=== PATIENT | female | born 1975 | race Caucasian/White ===

== ENCOUNTER → 2016-12-24 | Outpatient (CLI) | payer MEDICARE, OTHER ==
--- NOTE | 2016-12-25 06:44 | MM ---
Reason for exam: clinical finding. Last mammogram was performed 3 years ago. History: Family history of breast cancer in maternal grandmother at age 30. Indicated problem(s): lump or thickening in the right breast. Physical Findings: Nurse Summary: 1 x 1.5cm nodule in the right breast at 2 o'clock (nurse ts). MG 3D Diag Mammo W/Cad GUERO Bilateral CC and MLO view(s) were taken. XCCL, CV, and ML view(s) were taken of the right breast. Prior study comparison: December 18, 2013, bilateral MG diagnostic mammo w CAD GUERO. There are scattered fibroglandular densities. Nodular density at site of clinical correlation. These results were verbally communicated with the patient and result sheet given to the patient on 12/24/16. ASSESSMENT: Incomplete: need additional imaging evaluation, BI-RAD 0 RECOMMENDATION: Ultrasound of the right breast. Manage patient on a clinical basis.
--- NOTE | 2016-12-25 06:46 | USB ---
Reason for exam: additional evaluation requested from abnormal screening. History: Family history of breast cancer in maternal grandmother at age 30. US Breast RT Right breast ultrasound includes all four quadrants, the retroareolar region and axilla. Finding demonstrates a 1.4 x 1.2 x 0.5cm subcutaneous hypoechoic lesion at 3 o'clock, probable infected sebaceous cyst. These results were verbally communicated with the patient and result sheet given to the patient on 12/24/16. ASSESSMENT: Probably benign, BI-RAD 3 RECOMMENDATION: Ultrasound of the right breast in 3 months. Manage patient on a clinical basis.
== END | disposition home or self-care (01) ==
LOC: RADMAMWWP 13:33
PROVIDERS: ATTEND Family Medicine
DX: N63.10 Unspecified lump in the right breast, unspecified quadrant (principal); R92.8 Other abnormal and inconclusive findings on diagnostic imaging of breast
CPT/HCPCS: 76641; G0204; G0279

== ENCOUNTER 2020-02-07 09:41 | Emergency (ER) | payer MEDICARE, OTHER ==
--- NOTE | 2020-02-07 10:43 | ED ---
General Adult HPI - General Chief complaint: Altered Mental Status Stated complaint: mental health Time Seen by Provider: 02/07/20 10:07 Source: patient Mode of arrival: ambulatory Limitations: no limitations - History of Present Illness Initial comments: 44-year-old female presenting to the emergency department for altered mental status. Patient states she was started on Bactrim 4 days ago for a UTI that was diagnosed at an urgent care. Patient states she has been losing bladder control at least twice per week for over the last month. She does have hysterectomy. She denies any saddle anesthesia or bowel incontinence. She denies any dysuria or increased frequency but does report increased urgency. States today she wanted to call the [employer] but instead called her primary care physician and told him that she was getting more forgetful than usual, had blurry vision and difficulty walking. Although, she states the symptoms have been ongoing for the past several months. Patient states that she was advised by the PCPs office to come to the emergency department for evaluation. Patient denies one-sided weakness or paresthesias. Denies any visual changes at this time. - Related Data Home Medications Medication Instructions Recorded Confirmed Venlafaxine HCl [Effexor XR] 75 mg PO DAILY 12/26/13 02/07/20 Amoxic-Pot Clav 875-125Mg 1 tab PO BID 02/07/20 02/07/20 [Augmentin 875-125] Benztropine Mesylate [Cogentin] 1 mg PO HS 02/07/20 02/07/20 Benztropine Mesylate [Cogentin] 2 mg PO DAILY 02/07/20 02/07/20 Lurasidone HCl [Latuda] 120 mg PO HS 02/07/20 02/07/20 Omeprazole 20 mg PO BID 02/07/20 02/07/20 QUEtiapine FUMARATE [SEROquel] 300 mg PO HS 02/07/20 02/07/20 Sulfamethox-Tmp 800-160Mg [Bactrim 1 tab PO BID 02/07/20 02/07/20 DS 800-160 mg] Trospium Chloride 20 mg PO BID 02/07/20 02/07/20 Venlafaxine HCl ER [Effexor Xr] 150 mg PO DAILY 02/07/20 02/07/20 clonazePAM [KlonoPIN] 2 mg PO Q8H 02/07/20 02/07/20 lamoTRIgine [LaMICtal] 100 mg PO DAILY 02/07/20 02/07/20 lamoTRIgine [LaMICtal] 200 mg PO BID 02/07/20 02/07/20 metFORMIN HCL ER [Glucophage Xr] 500 mg PO AC-SUPPER 02/07/20 02/07/20 Allergies Allergy/AdvReac Type Severity Reaction Status Date / Time amoxicillin [Amoxicillin] AdvReac Abdominal Verified 02/07/20 11:40 Pain Review of Systems ROS Statement: Those systems with pertinent positive or pertinent negative responses have been documented in the HPI. ROS Other: All systems not noted in ROS Statement are negative. Past Medical History Past Medical History: GERD/Reflux Additional Past Medical History / Comment(s): panic disorder, depression, anxiety, bipolar History of Any Multi-Drug Resistant Organisms: Other MDRO Past Surgical History: Cholecystectomy, Hernia Repair, Hysterectomy Past Anesthesia/Blood Transfusion Reactions: No Reported Reaction Past Psychological History: Anxiety, Bipolar, Depression, Panic Disorder Smoking Status: Current every day smoker Past Alcohol Use History: None Reported Past Drug Use History: None Reported General Exam Limitations: no limitations General appearance: alert, in no apparent distress, obese Head exam: Present: atraumatic, normocephalic, normal inspection Eye exam: Present: normal appearance, PERRL, EOMI. Absent: scleral icterus, conjunctival injection, nystagmus Pupils: Present: normal accommodation ENT exam: Present: normal exam, normal oropharynx, mucous membranes dry, TM's normal bilaterally, normal external ear exam Neck exam: Present: normal inspection, full ROM. Absent: tenderness, lymphadenopathy Respiratory exam: Present: normal lung sounds bilaterally. Absent: respiratory distress, wheezes, rales, rhonchi, stridor, chest wall tenderness, accessory muscle use Cardiovascular Exam: Present: regular rate, normal rhythm, normal heart sounds. Absent: systolic murmur, diastolic murmur, rubs GI/Abdominal exam: Present: soft. Absent: distended, tenderness, rebound Extremities exam: Present: normal inspection, full ROM, normal capillary refill, other (+2 ulnar and radial pulses bilateral.). Absent: tenderness, pedal edema, joint swelling, calf tenderness Back exam: Present: normal inspection, full ROM. Absent: tenderness, CVA tenderness (R), CVA tenderness (L) Neurological exam: Present: alert, oriented X3, CN II-XII intact, normal gait, reflexes normal Expanded Patient oriented to: Present: person, place, time Speech: Present: fluid speech Cranial nerves: EOM's Intact: Normal, Tongue Deviation: Normal Cerebellar function: Finger to Nose: Normal Upper motor neuron: Pronator Drift: Normal Sensory exam: Upper Extremity Light Touch: Normal, Upper Extremity Pin Prick: Normal, Lower Extremity Light Touch: Normal, Lower Extremity Pin Prick: Normal Motor strength exam: RUE: 5, LUE: 5, RLE: 5, LLE: 5 DTR: Bicep (R): 4+, Bicep (L): 4+, Brachioradialis (R): 4+, Brachioradialis (L): 4+, Tricep (R): 4+, Tricep (L): 4+, Patellar (R): 4+, Patellar (L): 4+ Psychiatric exam: Present: normal affect, normal mood, anxious. Absent: dep ressed, agitated Skin exam: Present: warm, dry, intact, normal color Course Vital Signs 02/07/20 02/07/20 02/07/20 09:45 12:00 12:45 Temperature 97.8 F 98.3 F Pulse Rate 93 81 73 Respiratory 18 16 16 Rate Blood Pressure 138/86 128/65 121/65 O2 Sat by Pulse 98 99 99 Oximetry EKG Findings - EKG Comments: EKG Findings:: Sinus rhythm. Ventricular rate 83, IL 166, QRS 86, QTC 462. Medical Decision Making - Medical Decision Making 44-year-old female presenting to the emergency department with a chief complaint of altered mental status. Patient was brought to the ED by her friend. On physical examination, patient is able to ambulate without any difficulty. No signs of any gait instability. Patient does appear to be slightly forgetful but states this is typical for her and has been well for past several months. Patient doesn't have any UTI like symptoms at this time. The rest of neurological exam is unremarkable. Patient is also apparently seeing a urologist for bladder incontinence. CT/CTA of the brain was obtained with no acute findings. CBC reveals slight leukocytosis of 13.3. CMP is unremarkable. Coags within normal limits. Initial troponins are negative. UA is unremarkable. Patient did test positive for tricyclic antidepressants. She does report feeling anxious. She denies any saddle, suicidal thoughts or ideations. I offered a patient psychiatric evaluation, she declined. Patient states she feels comfortable going home. I advised the patient stopped taking the Bactrim. I also advised her to follow up with her primary care physician. Strict return parameters were thoroughly discussed with patient is understanding and agreeable. Case discussed with physician. - Lab Data Result diagrams: 02/07/20 10:34 02/07/20 10:34 Lab Results 02/07/20 02/07/20 02/07/20 Range/Units 10:34 10:34 10:34 WBC 13.3 H (3.8-10.6) k/uL RBC 5.00 (3.80-5.40) m/uL Hgb 16.0 (11.4-16.0) gm/dL Hct 49.1 H (34.0-46.0) % MCV 98.2 (80.0-100.0) fL MCH 32.0 (25.0-35.0) pg MCHC 32.6 (31.0-37.0) g/dL RDW 13.8 (11.5-15.5) % Plt Count 372 (150-450) k/uL MPV 7.0 Neutrophils % 73 % Lymphocytes % 20 % Monocytes % 3 % Eosinophils % 2 % Basophils % 1 % Neutrophils # 9.7 H (1.3-7.7) k/uL Lymphocytes # 2.6 (1.0-4.8) k/uL Monocytes # 0.5 (0-1.0) k/uL Eosinophils # 0.3 (0-0.7) k/uL Basophils # 0.1 (0-0.2) k/uL PT 9.7 (9.0-12.0) sec INR 0.9 (<1.2) APTT 26.2 (22.0-30.0) sec Sodium (137-145) mmol/L Potassium (3.5-5.1) mmol/L Chloride (98-107) mmol/L Carbon Dioxide (22-30) mmol/L Anion Gap mmol/L BUN (7-17) mg/dL Creatinine (0.52-1.04) mg/dL Est GFR (CKD-EPI)AfAm (>60 ml/min/1.73 sqM) Est GFR (CKD-EPI)NonAf (>60 ml/min/1.73 sqM) Glucose (74-99) mg/dL Calcium (8.4-10.2) mg/dL Total Bilirubin (0.2-1.3) mg/dL AST (14-36) U/L ALT (4-34) U/L Alkaline Phosphatase (38-126) U/L Troponin I (0.000-0.034) ng/mL Total Protein (6.3-8.2) g/dL Albumin (3.5-5.0) g/dL Urine Color Light Yellow Urine Appearance Clear (Clear) Urine pH 6.5 (5.0-8.0) Ur Specific Slater 1.006 (1.001-1.035) Urine Protein Negative (Negative) Urine Glucose (UA) Negative (Negative) Urine Ketones Negative (Negative) Urine Blood Negative (Negative) Urine Nitrite Negative (Negative) Urine Bilirubin Negative (Negative) Urine Urobilinogen <2.0 (<2.0) mg/dL Ur Leukocyte Esterase Negative (Negative) Urine Opiates Screen Not Detected (NotDetected) Ur Oxycodone Screen Not Detected (NotDetected) Urine Methadone Screen Not Detected (NotDetected) Ur Propoxyphene Screen Not Detected (NotDetected) Ur Barbiturates Screen Not Detected (NotDetected) U Tricyclic Antidepress Detected H (NotDetected) Ur Phencyclidine Scrn Not Detected (NotDetected) Ur Amphetamines Screen Not Detected (NotDetected) U Methamphetamines Scrn Not Detected (NotDetected) U Benzodiazepines Scrn Not Detected (NotDetected) Urine Cocaine Screen Not Detected (NotDetected) U Marijuana (THC) Screen Not Detected (NotDetected) 02/07/20 02/07/20 Range/Units 10:34 10:34 WBC (3.8-10.6) k/uL RBC (3.80-5.40) m/uL Hgb (11.4-16.0) gm/dL Hct (34.0-46.0) % MCV (80.0-100.0) fL MCH (25.0-35.0) pg MCHC (31.0-37.0) g/dL RDW (11.5-15.5) % Plt Count (150-450) k/uL MPV Neutrophils % % Lymphocytes % % Monocytes % % Eosinophils % % Basophils % % Neutrophils # (1.3-7.7) k/uL Lymphocytes # (1.0-4.8) k/uL Monocytes # (0-1.0) k/uL Eosinophils # (0-0.7) k/uL Basophils # (0-0.2) k/uL PT (9.0-12.0) sec INR (<1.2) APTT (22.0-30.0) sec Sodium 133 L (137-145) mmol/L Potassium 4.8 (3.5-5.1) mmol/L Chloride 101 (98-107) mmol/L Carbon Dioxide 26 (22-30) mmol/L Anion Gap 6 mmol/L BUN 10 (7-17) mg/dL Creatinine 0.98 (0.52-1.04) mg/dL Est GFR (CKD-EPI)AfAm 81 (>60 ml/min/1.73 sqM) Est GFR (CKD-EPI)NonAf 70 (>60 ml/min/1.73 sqM) Glucose 103 H (74-99) mg/dL Calcium 9.2 (8.4-10.2) mg/dL Total Bilirubin 0.4 (0.2-1.3) mg/dL AST 29 (14-36) U/L ALT 16 (4-34) U/L Alkaline Phosphatase 106 (38-126) U/L Troponin I <0.012 (0.000-0.034) ng/mL Total Protein 7.2 (6.3-8.2) g/dL Albumin 4.0 (3.5-5.0) g/dL Urine Color Urine Appearance (Clear) Urine pH (5.0-8.0) Ur Specific Slater (1.001-1.035) Urine Protein (Negative) Urine Glucose (UA) (Negative) Urine Ketones (Negative) Urine Blood (Negative) Urine Nitrite (Negative) Urine Bilirubin (Negative) Urine Urobilinogen (<2.0) mg/dL Ur Leukocyte Esterase (Negative) Urine Opiates Screen (NotDetected) Ur Oxycodone Screen (NotDetected) Urine Methadone Screen (NotDetected) Ur Propoxyphene Screen (NotDetected) Ur Barbiturates Screen (NotDetected) U Tricyclic Antidepress (NotDetected) Ur Phencyclidine Scrn (NotDetected) Ur Amphetamines Screen (NotDetected) U Methamphetamines Scrn (NotDetected) U Benzodiazepines Scrn (NotDetected) Urine Cocaine Screen (NotDetected) U Marijuana (THC) Screen (NotDetected) Disposition Clinical Impression: Drug reaction Disposition: HOME SELF-CARE Condition: Stable Instructions (If sedation given, give patient instructions): Sulfamethoxazole/Trimethoprim (By mouth) Additional Instructions: Follow with her primary care. Return to emergency department if symptoms wor sen. Is patient prescribed a controlled substance at d/c from ED?: No Referrals: Mikael Mai DO [Primary Care Provider] - 1-2 days Time of Disposition: 12:41
[2020-02-07 10:57] LABS: Basophils # (A) 0.1 k/uL (0-0.2); Basophils % (A) 1 %; Eosinophils # (A) 0.3 k/uL (0-0.7); Eosinophils % (A) 2 %; HCT 49.1 % (34.0-46.0); Lymphocytes # (A) 2.6 k/uL (1.0-4.8); Lymphocytes % (A) 20 %; MCHC 32.6 g/dL (31.0-37.0); MCV 98.2 fL (80.0-100.0); Monocytes # (A) 0.5 k/uL (0-1.0); Monocytes % (A) 3 %; Neutrophils # (A) 9.7 k/uL (1.3-7.7); Neutrophils % (A) 73 %; Platelet Count 372 k/uL (150-450); RDW 13.8 % (11.5-15.5); WBC 13.3 k/uL (3.8-10.6)
--- NOTE | 2020-02-07 11:02 | XR ---
EXAMINATION TYPE: XR chest 2V DATE OF EXAM: 02/07/2020 COMPARISON: 03/08/2013 HISTORY: Chest pain TECHNIQUE: Frontal and lateral views of the chest are obtained. FINDINGS: There is no focal air space opacity. No evidence for pneumothorax. No pleural effusion. The cardiac silhouette size is within normal limits. The osseous structures are grossly intact. IMPRESSION: 1. No acute cardiopulmonary process.
[2020-02-07 11:06] LABS: Calcium 9.2 mg/dL (8.4-10.2); Potassium 4.8 mmol/L (3.5-5.1); Total Bilirubin 0.4 mg/dL (0.2-1.3); Total Protein 7.2 g/dL (6.3-8.2)
[2020-02-07 11:09] LABS: Appearance,Urine Clear (Clear); Bilirubin,Urine Negative (Negative); Blood,Urine Negative (Negative); Color,Urine Light Yellow; Glucose,Urine (UA) Negative (Negative); Ketones,Urine Negative (Negative); Leukocyte Esterase,Urine Negative (Negative); Nitrite,Urine Negative (Negative); PH, Urine 6.5 (5.0-8.0); Protein,Urine Negative (Negative); Specific Gravity,Urine 1.006 (1.001-1.035); Urobilinogen,Urine <2.0 mg/dL (<2.0)
[2020-02-07 11:16] LABS: INR 0.9 (<1.2); Partial Thromboplastin Time 26.2 sec (22.0-30.0); Prothrombin Time 9.7 sec (9.0-12.0)
[2020-02-07 11:20] LABS: Amphetamine Screen,Urine Not Detected (NotDetected); Barbiturate Screen,Urine Not Detected (NotDetected); Benzodiazepines Screen,Urine Not Detected (NotDetected); Cocaine Screen,Urine Not Detected (NotDetected); Methadone Screen, Urine Not Detected (NotDetected); Opiate Screen,Urine Not Detected (NotDetected); Oxycodone Screen, Urine Not Detected (NotDetected); Phencyclidine Screen,Urine Not Detected (NotDetected); Tricyclic Antidepressant,Urine Detected (NotDetected); Urn Cannabinoid Scrn Not Detected (NotDetected)
--- NOTE | 2020-02-07 11:54 | CT ---
EXAMINATION TYPE: CT brain wo con DATE OF EXAM: 02/07/2020 COMPARISON: MRI brain April 03, 2011 HISTORY: Altered mental status. CT DLP: 1054.8 mGycm. Automated Exposure Control for Dose Reduction was Utilized. TECHNIQUE: CT scan of the head is performed without contrast. FINDINGS: There is no acute intracranial hemorrhage, mass effect, or midline shift identified. The ventricles and sulci are within normal limits in size. Lewis-white matter differentiation is fairly w ell maintained. No suspicious opacification mastoid air cells bilaterally. The globes are intact and the visualized sinuses are clear. IMPRESSION: No acute intracranial hemorrhage or midline shift is seen. No significant change from pr ior MRI.
[2020-02-07 12:09] VITALS: RESP 16
--- NOTE | 2020-02-07 12:18 | CT ---
EXAMINATION TYPE: CT angio head neck DATE OF EXAM: 02/07/2020 HISTORY: Altered mental status COMPARISON: None CT DLP: 806.9 mGycm. Automated Exposure Control for Dose Reduction was Utilized. TECHNIQUE: CTA scan of the head and neck are performed with IV Contrast, patient injected with 65 mL of Isovue 370, axial images are obtained, coronal and sagittal reformatted images are reviewed. Thre e-D reconstructed images are created on an independent workstation and reviewed. FINDINGS: Carotid/Vascular Structures: Normal 3 vessel origin from aortic arch. Right common carotid artery arturo ws normal origin from brachiocephalic artery. No significant plaque or stenosis in common or internal carotid arteries including at the level carotid bulbs bilaterally. Patent external carotid arteries without significant plaque or stenosis. Codominant vertebrobasilar system. Vertebral arteries patent to the basilar junction. Hypoplastic bilateral posterior communicating arteries. No significant focal stenosis or aneurysmal c hange of the posterior circulation. Patent small caliber anterior communicating artery. No significan t focal stenosis or aneurysmal change in the anterior circulation. Other: Loss of normal cervical curvature with mild to moderate narrowing and spurring anterior C5-C6 level. IMPRESSION: No significant stenosis in common or internal carotid arteries. No significant stenosis or aneurysm at level [place].
[2020-02-07 12:52] VITALS: BP 121/65; PULSE 73; TEMP 98.3
== END 2020-02-07 12:45 | disposition home or self-care (01) ==
LOC: EC 09:41
DX: R41.82 Altered mental status, unspecified (principal); R39.15 Urgency of urination; H53.8 Other visual disturbances; T50.905A Adverse effect of unspecified drugs, medicaments and biological substances, initial encounter; K21.9 Gastro-esophageal reflux disease without esophagitis; F41.9 Anxiety disorder, unspecified; F31.9 Bipolar disorder, unspecified; F41.0 Panic disorder [episodic paroxysmal anxiety]; F17.200 Nicotine dependence, unspecified, uncomplicated; Z79.899 Other long term (current) drug therapy; Z88.0 Allergy status to penicillin; Z90.710 Acquired absence of both cervix and uterus
CPT/HCPCS: 99285 ×2; 36415; 93005; 80053; 84484; 85025; 85610; 85730; 81003; 80306; 71046; 70496; 70450; 70498; Q9967

== ENCOUNTER 2020-04-06 21:43 | Emergency (ER) | payer MEDICARE, OTHER ==
[2020-04-06 21:53] LABS: Glucose,Whole Blood 112 mg/dL (75-99)
--- NOTE | 2020-04-06 21:56 | ED ---
Altered Mental Status HPI - General Chief Complaint: Altered Mental Status Stated Complaint: Weakness Time Seen by Provider: 04/06/20 21:53 Source: patient, EMS Limitations: altered mental status - History of Present Illness Initial Comments: This patient is a 44-year-old woman who presents to be evaluated for altered mental status. The history is mainly from the patient's ex- who is at the bedside. The patient is not able to provide much additional history other than being able answer some direct questions. The patient's son had apparently seen her early in the day, he had gone out and when he returned, they found her appearing confused, very weak and not able to support herself. The patient denies pain or dyspnea. Per family report, some of her psychiatric medications had been adjusted, but they're not able to tell me exactly what medication had been stopped and what had been increased. MD Complaint: altered mental status, confusion -: hour(s) Severity: moderate Associated Symptoms: denies other symptoms - Related Data Home Medications Medication Instructions Recorded Confirmed Venlafaxine HCl [Effexor XR] 75 mg PO DAILY 12/26/13 04/06/20 Benztropine Mesylate [Cogentin] 1 mg PO HS 02/07/20 04/06/20 Benztropine Mesylate [Cogentin] 2 mg PO DAILY 02/07/20 04/06/20 Lurasidone HCl [Latuda] 120 mg PO HS 02/07/20 04/06/20 Omeprazole 20 mg PO BID 02/07/20 04/06/20 QUEtiapine FUMARATE [SEROquel] 300 mg PO HS 02/07/20 04/06/20 Trospium Chloride 20 mg PO BID 02/07/20 04/06/20 Venlafaxine HCl ER [Effexor Xr] 150 mg PO DAILY 02/07/20 04/06/20 clonazePAM [KlonoPIN] 2 mg PO Q8H 02/07/20 04/06/20 lamoTRIgine [LaMICtal] 100 mg PO DAILY 02/07/20 04/06/20 lamoTRIgine [LaMICtal] 200 mg PO BID 02/07/20 04/06/20 Diclofenac Sodium 50 mg PO BID PRN 04/06/20 04/06/20 Doxycycline Hyclate [Vibramycin] 100 mg PO DAILY 04/06/20 04/06/20 Naproxen 500 mg PO BID PRN 04/06/20 04/06/20 Allergies Allergy/AdvReac Type Severity Reaction Status Date / Time amoxicillin [Amoxicillin] AdvReac Abdominal Verified 04/06/20 22:40 Pain Review of Systems ROS Statement: Those systems with pertinent positive or pertinent negative responses have been documented in the HPI. ROS Other: All systems not noted in ROS Statement are negative. Limitations: ROS unobtainable due to patients medical condition Constitutional: Denies: fever Eyes: Denies: vision change Respiratory: Denies: cough, dyspnea Cardiovascular: Denies: chest pain, palpitations, edema Gastrointestinal: Denies: abdominal pain, vomiting, diarrhea Genitourinary: Denies: dysuria Musculoskeletal: Denies: back pain Neurological: Reports: confusion. Denies: headache, weakness, numbness Past Medical History Past Medical History: GERD/Reflux Additional Past Medical History / Comment(s): panic disorder, depression, anxiety, bipolar History of Any Multi-Drug Resistant Organisms: Other MDRO Past Surgical History: Cholecystectomy, Hernia Repair, Hysterectomy Past Anesthesia/Blood Transfusion Reactions: No Reported Reaction Past Psychological History: Anxiety, Bipolar, Depression, Panic Disorder Smoking Status: Current every day smoker Past Alcohol Use History: None Reported Past Drug Use History: None Reported General Exam Limitations: altered mental status General appearance: alert, in no apparent distress Head exam: Present: atraumatic, normocephalic Eye exam: Present: normal appearance. Absent: scleral icterus, conjunctival injection ENT exam: Present: mucous membranes dry Neck exam: Present: normal inspection, full ROM. Absent: tenderness Respiratory exam: Present: normal lung sounds bilaterally. Absent: respiratory distress, wheezes, rales, rhonchi, stridor, chest wall tenderness Cardiovascular Exam: Present: regular rate, normal rhythm, normal heart sounds. Absent: systolic murmur, diastolic murmur, rubs, gallop GI/Abdominal exam: Present: soft. Absent: distended, tenderness, guarding, rebound, rigid, mass Extremities exam: Present: normal inspection, normal capillary refill. Absent: pedal edema, calf tenderness Back exam: Present: normal inspection. Absent: CVA tenderness (R), CVA tenderness (L), vertebral tenderness Neurological exam: Present: alert, CN II-XII intact. Absent: oriented X3 (Patient is oriented to person), motor sensory deficit Skin exam: Present: warm, dry, intact, normal color. Absent: rash Course Vital Signs 04/06/20 04/06/20 04/07/20 21:45 22:51 01:00 Temperature 97.4 F L 97.8 F Pulse Rate 78 78 78 Respiratory 18 20 16 Rate Blood Pressure 129/76 110/56 118/62 O2 Sat by Pulse 98 96 98 Oximetry 04/07/20 02:55 Temperature 98.0 F Pulse Rate 71 Respiratory 18 Rate Blood Pressure 121/61 O2 Sat by Pulse 96 Oximetry Medical Decision Making - Medical Decision Making Patient is 44-year-old woman here for altered mental status. She does appear to be acutely delirious, without finding exact etiology here. Head CT is negative for evidence of trauma. Patient is mildly hypercarbic but not enough to account for the exam findings. I discussed with the patient's ex- who maintains that she is deftly not at her baseline. Patient to be admitted, but with no neurology here internists request transfer. Family agrees with transfer to closest facility, [facility]. Case discussed with Dr. Thomas who will accept. - Lab Data Result diagrams: 04/06/20 22:11 04/06/20 22:11 Lab Results 04/06/20 04/06/20 04/06/20 Range/Units 21:51 22:11 22:11 WBC 12.6 H (3.8-10.6) k/uL RBC 4.75 (3.80-5.40) m/uL Hgb 14.9 (11.4-16.0) gm/dL Hct 47.0 H (34.0-46.0) % MCV 99.0 (80.0-100.0) fL MCH 31.5 (25.0-35.0) pg MCHC 31.8 (31.0-37.0) g/dL RDW 14.1 (11.5-15.5) % Plt Count 345 (150-450) k/uL MPV 7.0 Neutrophils % 68 % Lymphocytes % 24 % Monocytes % 4 % Eosinophils % 3 % Basophils % 1 % Neutrophils # 8.6 H (1.3-7.7) k/uL Lymphocytes # 3.1 (1.0-4.8) k/uL Monocytes # 0.5 (0-1.0) k/uL Eosinophils # 0.3 (0-0.7) k/uL Basophils # 0.1 (0-0.2) k/uL PT 10.4 (9.0-12.0) sec INR 1.0 (<1.2) APTT 24.0 (22.0-30.0) sec VBG pH (7.31-7.41) VBG pCO2 (37-51) mmHg VBG HCO3 (24-28) mmol/L Sodium (137-145) mmol/L Potassium (3.5-5.1) mmol/L Chloride (98-107) mmol/L Carbon Dioxide (22-30) mmol/L Anion Gap mmol/L BUN (7-17) mg/dL Creatinine (0.52-1.04) mg/dL Est GFR (CKD-EPI)AfAm (>60 ml/min/1.73 sqM) Est GFR (CKD-EPI)NonAf (>60 ml/min/1.73 sqM) Glucose (74-99) mg/dL POC Glucose (mg/dL) 112 H (75-99) mg/dL POC Glu [facility] [place], [place] Plasma Lactic Acid Jeremy (0.7-2.0) mmol/L Calcium (8.4-10.2) mg/dL Total Bilirubin (0.2-1.3) mg/dL AST (14-36) U/L ALT (4-34) U/L Alkaline Phosphatase (38-126) U/L Ammonia (<30) umol/L Troponin I (0.000-0.034) ng/mL Total Protein (6.3-8.2) g/dL Albumin (3.5-5.0) g/dL TSH (0.465-4.680) mIU/L Serum Alcohol mg/dL 04/06/20 04/06/20 04/06/20 Range/Units 22:11 22:11 22:11 WBC (3.8-10.6) k/uL RBC (3.80-5.40) m/uL Hgb (11.4-16.0) gm/dL Hct (34.0-46.0) % MCV (80.0-100.0) fL MCH (25.0-35.0) pg MCHC (31.0-37.0) g/dL RDW (11.5-15.5) % Plt Count (150-450) k/uL MPV Neutrophils % % Lymphocytes % % Monocytes % % Eosinophils % % Basophils % % Neutrophils # (1.3-7.7) k/uL Lymphocytes # (1.0-4.8) k/uL Monocytes # (0-1.0) k/uL Eosinophils # (0-0.7) k/uL Basophils # (0-0.2) k/uL PT (9.0-12.0) sec INR (<1.2) APTT (22.0-30.0) sec VBG pH (7.31-7.41) VBG pCO2 (37-51) mmHg VBG HCO3 (24-28) mmol/L Sodium 136 L (137-145) mmol/L Potassium 4.5 (3.5-5.1) mmol/L Chloride 102 (98-107) mmol/L Carbon Dioxide 26 (22-30) mmol/L Anion Gap 8 mmol/L BUN 13 (7-17) mg/dL Creatinine 0.92 (0.52-1.04) mg/dL Est GFR (CKD-EPI)AfAm 87 (>60 ml/min/1.73 sqM) Est GFR (CKD-EPI)NonAf 76 (>60 ml/min/1.73 sqM) Glucose 97 (74-99) mg/dL POC Glucose (mg/dL) (75-99) mg/dL POC Glu [facility] Plasma Lactic Acid Jeremy (0.7-2.0) mmol/L Calcium 8.8 (8.4-10.2) mg/dL Total Bilirubin 0.5 (0.2-1.3) mg/dL AST 20 (14-36) U/L ALT 15 (4-34) U/L Alkaline Phosphatase 84 (38-126) U/L Ammonia <9 (<30) umol/L Troponin I <0.012 (0.000-0.034) ng/mL Total Protein 6.7 (6.3-8.2) g/dL Albumin 3.6 (3.5-5.0) g/dL TSH (0.465-4.680) mIU/L Serum Alcohol <10 mg/dL 04/06/20 04/06/20 04/06/20 Range/Units 22:11 22:51 22:55 WBC (3.8-10.6) k/uL RBC (3.80-5.40) m/uL Hgb (11.4-16.0) gm/dL Hct (34.0-46.0) % MCV (80.0-100.0) fL MCH (25.0-35.0) pg MCHC (31.0-37.0) g/dL RDW (11.5-15.5) % Plt Count (150-450) k/uL MPV Neutrophils % % Lymphocytes % % Monocytes % % Eosinophils % % Basophils % % Neutrophils # (1.3-7.7) k/uL Lymphocytes # (1.0-4.8) k/uL Monocytes # (0-1.0) k/uL Eosinophils # (0-0.7) k/uL Basophils # (0-0.2) k/uL PT (9.0-12.0) sec INR (<1.2) APTT (22.0-30.0) sec VBG pH 7.35 (7.31-7.41) VBG pCO2 52 H (37-51) mmHg VBG HCO3 28 (24-28) mmol/L Sodium (137-145) mmol/L Potassium (3.5-5.1) mmol/L Chloride (98-107) mmol/L Carbon Dioxide (22-30) mmol/L Anion Gap mmol/L BUN (7-17) mg/dL Creatinine (0.52-1.04) mg/dL Est GFR (CKD-EPI)AfAm (>60 ml/min/1.73 sqM) Est GFR (CKD-EPI)NonAf (>60 ml/min/1.73 sqM) Glucose (74-99) mg/dL POC Glucose (mg/dL) (75-99) mg/dL POC Glu [facility] ID Plasma Lactic Acid Jeremy 1.7 (0.7-2.0) mmol/L Calcium (8.4-10.2) mg/dL Total Bilirubin (0.2-1.3) mg/dL AST (14-36) U/L ALT (4-34) U/L Alkaline Phosphatase (38-126) U/L Ammonia (<30) umol/L Troponin I (0.000-0.034) ng/mL Total Protein (6.3-8.2) g/dL Albumin (3.5-5.0) g/dL TSH 2.900 (0.465-4.680) mIU/L Serum Alcohol mg/dL - EKG Data -: EKG Interpreted by Vt EKG shows normal: sinus rhythm, axis (Normal), intervals (Normal), QRS complexes (Normal), ST-T waves (Normal) Rate: normal (Rate 78 bpm) Interpretation: normal EKG Disposition Clinical Impression: Altered mental status Disposition: OTHER INSTITUTION NOT DEFINED Condition: Fair Instructions (If sedation given, give patient instructions): Altered Mental S tatus (ED) Referrals: Mikael Mai DO [Primary Care Provider] - 1-2 days - Out of Hospital Transfer - Req. Specs Out of Hospital Transfer - Requested Specifics: Other Emergency Center
--- NOTE | 2020-04-06 22:21 | XR ---
EXAMINATION TYPE: XR chest 1V portable DATE OF EXAM: 04/06/2020 COMPARISON: 02/07/2020 HISTORY: Altered mental status TECHNIQUE: FINDINGS: Heart is enlarged. There is no heart failure. There are no hilar masses. Costophrenic angle s are clear. Lungs are clear of infiltrate. IMPRESSION: No active cardiopulmonary disease. No change.
[2020-04-06 22:27] LABS: Basophils # (A) 0.1 k/uL (0-0.2); Basophils % (A) 1 %; Eosinophils # (A) 0.3 k/uL (0-0.7); Eosinophils % (A) 3 %; HGB 14.9 gm/dL (11.4-16.0); Lymphocytes # (A) 3.1 k/uL (1.0-4.8); Lymphocytes % (A) 24 %; MCH 31.5 pg (25.0-35.0); MCHC 31.8 g/dL (31.0-37.0); Monocytes # (A) 0.5 k/uL (0-1.0); Monocytes % (A) 4 %; Neutrophils # (A) 8.6 k/uL (1.3-7.7); Neutrophils % (A) 68 %; Platelet Count 345 k/uL (150-450); RBC 4.75 m/uL (3.80-5.40); RDW 14.1 % (11.5-15.5); WBC 12.6 k/uL (3.8-10.6)
[2020-04-06] MEDS ORDERED: SODIUM CHLORIDE 0.9% 1,000 ML IV ONE (22:33)
[2020-04-06 22:39] LABS: Prothrombin Time 10.4 sec (9.0-12.0)
[2020-04-06 22:45] LABS: ALT 15 U/L (4-34); AST 20 U/L (14-36); African American GFR (CKD) 87 (>60 ml/min/1.73 sqM); Albumin 3.6 g/dL (3.5-5.0); Alcohol <10 mg/dL; Alkaline Phosphatase 84 U/L (38-126); Anion Gap 8 mmol/L; Blood Urea Nitrogen 13 mg/dL (7-17); Calcium 8.8 mg/dL (8.4-10.2); Carbon Dioxide 26 mmol/L (22-30); Chloride 102 mmol/L (98-107); Glucose 97 mg/dL (74-99); Non-African American GFR(CKD) 76 (>60 ml/min/1.73 sqM); Potassium 4.5 mmol/L (3.5-5.1); Sodium 136 mmol/L (137-145); Total Bilirubin 0.5 mg/dL (0.2-1.3); Total Protein 6.7 g/dL (6.3-8.2)
--- NOTE | 2020-04-06 22:54 | CT ---
EXAMINATION TYPE: CT brain wo con DATE OF EXAM: 04/06/2020 COMPARISON: 02/07/2020 HISTORY: ams CT DLP: 1064.4 mGycm Automated exposure control for dose reduction was used. Ventricles have normal size. There is no mass effect nor midline shift. There is no sign of intracran ial hemorrhage. Calvarium is intact. IMPRESSION: Negative unenhanced head CT scan. No change.
[2020-04-06 23:26] LABS: VBG PH 7.35 (7.31-7.41)
[2020-04-07] MEDS ORDERED: SODIUM CHLORIDE 0.9% 1,000 ML IV ONE (02:39)
[2020-04-07] MEDS ORDERED: LORazepam 2 MG/ML INJ IV STA ×2 (02:54→03:03)
[2020-04-07 03:40] VITALS: BP 121/61; PULSE 71; RESP 18; TEMP 98
== END 2020-04-07 03:20 | disposition other institution (70) ==
LOC: EC 21:43
DX: R41.82 Altered mental status, unspecified (principal); R06.89 Other abnormalities of breathing; F41.0 Panic disorder [episodic paroxysmal anxiety]; F31.9 Bipolar disorder, unspecified; K21.9 Gastro-esophageal reflux disease without esophagitis; Z79.899 Other long term (current) drug therapy; F17.200 Nicotine dependence, unspecified, uncomplicated; Z88.0 Allergy status to penicillin
CPT/HCPCS: 36415; 93005; 80053; 84443; 82140; 82803; 83605; 84484; 85025; 85610; 85730; 71045; 70450; 99285; 96374; 96361; G0480; J2060; 80320

== ENCOUNTER → 2020-07-25 | Outpatient (CLI) | payer MEDICARE, OTHER ==
--- NOTE | 2020-07-25 12:22 | FL ---
EXAMINATION TYPE: FL barium swallow DATE OF EXAM: 07/25/2020 CLINICAL HISTORY: Dysphasia TECHNIQUE: A double contrast esophagram is performed utilizing air and barium. A total of 57 second s of fluoroscopic time was utilized during procedure. 56 images submitted. COMPARISON: None FINDINGS: The esophagus shows occasional dysmotility and normal emptying into the stomach. No eviden ce of hiatal hernia or stricture noted. No significant gastroesophageal reflux was seen during real t nicholas performance of this study. IMPRESSION: 1. Correlate for dysmotility.
== END | disposition home or self-care (01) ==
LOC: RADUSWWP 10:55
PROVIDERS: ATTEND Otolaryngology
DX: R13.10 Dysphagia, unspecified (principal)
CPT/HCPCS: 74220

== ENCOUNTER 2020-11-12 09:04 | Emergency (ER) | payer MEDICARE, OTHER ==
[2020-11-12 09:11] VITALS: RESP 18; TEMP 98.2
[2020-11-12] MEDS ORDERED: LORazepam 2 MG/ML INJ IM STA (09:34)
--- NOTE | 2020-11-12 09:37 | ED ---
General Adult HPI - General Chief complaint: Psychiatric Symptoms Stated complaint: mental health Time Seen by Provider: 11/12/20 09:13 Source: patient Mode of arrival: ambulatory Limitations: no limitations - History of Present Illness Initial comments: Dictation was produced using [employer] dictation software. please excuse any grammatical, word or spelling errors. Chief Complaint: 45-year-old female presents to the emergency department for onset ideation History of Present Illness: 45-year-old female she is accompanied by son. His past medical history bipolar disease, depression anxiety and panic disorder. She had a dose medications for her psychiatric medications adjusted by her primary care doctor recently. Last week she's been feeling homicidal and suicidal. Patient states she is been having had thoughts of wanting to hurt her family. She does complain of auditory and visual hallucinations. She states she feels anxious. She denies any medical complaints The ROS documented in this emergency department record has been reviewed and confirmed by me. Those systems with pertinent positive or negative responses have been documented in the HPI. All other systems are other negative and/or noncontributory. PHYSICAL EXAM: General Impression: Alert and oriented x3, anxious, tearful HEENT: Normocephalic atraumatic, extra-ocular movements intact, pupils equal and reactive to light bilaterally, mucous membranes moist. Cardiovascular: Heart regular rate and rhythm Chest: Able to complete full sentences, no retractions, no tachypnea Abdomen: abdomen soft, non-tender, non-distended, no organomegaly Musculoskeletal: Pulses present and equal in all extremities, no peripheral edema Motor: no focal deficits noted Neurological: CN II-XII grossly intact, no focal motor or sensory deficits noted Skin: Intact with no visualized rashes Psych: Anxious ED course: 45 yol female presents to the emergency department for homicidal ideation. Vital signs upon arrival shows her to 128. Rest vital signs within acceptable limits. Patient visibly anxious at the bedside. Patient given anxiolytics. She is cleared for EPS evaluation. Review vitals are improved. Patient to med by EPS and cleared patient for discharge. Patient reevaluated at 12:20 PM 100 still medical condition. - Related Data Home Medications Medication Instructions Recorded Confirmed Venlafaxine HCl [Effexor XR] 75 mg PO DAILY 12/26/13 11/12/20 Benztropine Mesylate [Cogentin] 1 mg PO HS 02/07/20 11/12/20 Benztropine Mesylate [Cogentin] 2 mg PO DAILY 02/07/20 11/12/20 Lurasidone HCl [Latuda] 120 mg PO HS 02/07/20 11/12/20 Omeprazole 20 mg PO BID 02/07/20 11/12/20 QUEtiapine FUMARATE [SEROquel] 300 mg PO HS 02/07/20 11/12/20 Venlafaxine HCl ER [Effexor Xr] 150 mg PO DAILY 02/07/20 11/12/20 clonazePAM [KlonoPIN] 2 mg PO Q8H 02/07/20 11/12/20 lamoTRIgine [LaMICtal] 100 mg PO DAILY 02/07/20 11/12/20 lamoTRIgine [LaMICtal] 200 mg PO BID 02/07/20 11/12/20 Memantine [Namenda] 10 mg PO BID 11/12/20 11/12/20 Allergies Allergy/AdvReac Type Severity Reaction Status Date / Time amoxicillin [Amoxicillin] AdvReac Abdominal Verified 11/12/20 10:38 Pain Review of Systems ROS Statement: Those systems with pertinent positive or pertinent negative responses have been documented in the HPI. ROS Other: All systems not noted in ROS Statement are negative. Past Medical History Past Medical History: GERD/Reflux Additional Past Medical History / Comment(s): panic disorder, depression, anxiety, bipolar History of Any Multi-Drug Resistant Organisms: Other MDRO Past Surgical History: Cholecystectomy, Hernia Repair, Hysterectomy Past Anesthesia/Blood Transfusion Reactions: No Reported Reaction Past Psychological History: Anxiety, Bipolar, Depression, Panic Disorder Smoking Status: Current every day smoker Past Alcohol Use History: None Reported Past Drug Use History: None Reported General Exam Limitations: no limitations Course Vital Signs 11/12/20 09:07 Temperature 98.2 F Pulse Rate 128 H Respiratory 18 Rate Blood Pressure 140/88 O2 Sat by Pulse 94 L Oximetry Disposition Clinical Impression: Homicidal thoughts, Suicidal ideation Disposition: HOME SELF-CARE Condition: Fair Instructions (If sedation given, give patient instructions): Help Prevent Suicide in Older Adults (ED) Is patient prescribed a controlled substance at d/c from ED?: No Referrals: iMkael Mai DO [Primary Care Provider] - 1-2 days
[2020-11-12 12:30] VITALS: BP 132/78; PULSE 108
== END 2020-11-12 12:31 | disposition home or self-care (01) ==
LOC: EC 09:04
DX: R45.850 Homicidal ideations (principal); R45.851 Suicidal ideations; R44.1 Visual hallucinations; R44.0 Auditory hallucinations; F31.9 Bipolar disorder, unspecified; F17.200 Nicotine dependence, unspecified, uncomplicated; K21.9 Gastro-esophageal reflux disease without esophagitis; Z79.899 Other long term (current) drug therapy; Z88.0 Allergy status to penicillin
CPT/HCPCS: 96372 ×2; 99284 ×2; 82075; J2060

== ENCOUNTER 2021-01-16 16:01 | Observation (INO) | payer MEDICARE, OTHER ==
[2021-01-16 16:30] LABS: Glucose,Whole Blood 168 mg/dL (75-99)
[2021-01-16] MEDS ORDERED: SODIUM CHLORIDE 0.9% 1,000 ML IV ONE (18:22)
[2021-01-16] MEDS ORDERED: ONDANSETRON 4 MG/2 ML VIAL IVP STA (18:23)
[2021-01-16 18:52] LABS: ALT 15 U/L (4-34); AST 29 U/L (14-36); Acetaminophen <10.0 ug/mL; African American GFR (CKD) >90 (>60 ml/min/1.73 sqM); Albumin 3.8 g/dL (3.5-5.0); Alcohol <10 mg/dL; Alkaline Phosphatase 100 U/L (38-126); Anion Gap 6 mmol/L; Blood Urea Nitrogen 7 mg/dL (7-17); Calcium 9.3 mg/dL (8.4-10.2); Carbon Dioxide 27 mmol/L (22-30); Chloride 102 mmol/L (98-107); Glucose 117 mg/dL (74-99); Non-African American GFR(CKD) >90 (>60 ml/min/1.73 sqM); Potassium 4.8 mmol/L (3.5-5.1); Salicylate <1.0 mg/dL; Sodium 135 mmol/L (137-145); Total Bilirubin 0.4 mg/dL (0.2-1.3)
[2021-01-16 18:55] LABS: Basophils % (A) 0 %; Eosinophils # (A) 0.2 k/uL (0-0.7); Eosinophils % (A) 1 %; HCT 47.3 % (34.0-46.0); HGB 16.4 gm/dL (11.4-16.0); Lymphocytes # (A) 1.5 k/uL (1.0-4.8); Lymphocytes % (A) 9 %; MCH 33.2 pg (25.0-35.0); MCHC 34.7 g/dL (31.0-37.0); MCV 95.6 fL (80.0-100.0); Monocytes # (A) 0.4 k/uL (0-1.0); Monocytes % (A) 3 %; Neutrophils # (A) 14.6 k/uL (1.3-7.7); Neutrophils % (A) 87 %; Partial Thromboplastin Time 24.9 sec (22.0-30.0); Platelet Count 410 k/uL (150-450); Prothrombin Time 10.4 sec (9.0-12.0); RBC 4.94 m/uL (3.80-5.40); RDW 13.9 % (11.5-15.5); WBC 16.8 k/uL (3.8-10.6)
--- NOTE | 2021-01-16 18:56 | ED ---
General Adult HPI - General Chief complaint: Altered Mental Status Stated complaint: AMS Time Seen by Provider: 01/16/21 17:33 Source: EMS, RN notes reviewed, old records reviewed Mode of arrival: EMS Limitations: altered mental status - History of Present Illness Initial comments: I evaluated the patient when she was placed in a room. Patient is a 45-year-old female with past medical history remarkable for psychiatric illness who was recently started on Ativan at home who presents emergency Department train brought in by her ex- for concern for altered mental status. He states that he believes she may take an extra doses of her new medication, Ativan. She is been sleepy, more confused than normal. I speak with the patient, she does a ppear confused. She is alert and oriented times one to 2. She denies any acute complaints at this time. She denies any other drug use. Exam is limited due to her current clinical status. - Related Data Home Medications Medication Instructions Recorded Confirmed Venlafaxine HCl [Effexor XR] 75 mg PO DAILY 12/26/13 01/16/21 Benztropine Mesylate [Cogentin] 1 mg PO HS 02/07/20 01/16/21 Benztropine Mesylate [Cogentin] 2 mg PO DAILY 02/07/20 01/16/21 Omeprazole 20 mg PO BID 02/07/20 01/16/21 QUEtiapine FUMARATE [SEROquel] 300 mg PO HS 02/07/20 01/16/21 lamoTRIgine [LaMICtal] 100 mg PO BID 02/07/20 01/16/21 lamoTRIgine [LaMICtal] 200 mg PO BID 02/07/20 01/16/21 LORazepam [Ativan] 2 mg PO Q6H PRN 01/16/21 01/16/21 Trospium Chloride 20 mg PO BID 01/16/21 01/16/21 Allergies Allergy/AdvReac Type Severity Reaction Status Date / Time amoxicillin [Amoxicillin] AdvReac Abdominal Verified 01/16/21 17:52 Pain Review of Systems ROS Statement: Those systems with pertinent positive or pertinent negative responses have been documented in the HPI. Review of Systems: Difficult to obtain secondary to patient's current clinical status. However she has no acute complaints at this time. CONST: Denies fever EYES: Denies blurry vision ENT: Denies nasal congestion C/V: Denies Chest pain RESP: Denies shortness of breath GI: Denies abdominal pain : Denies dysuria SKIN: Denies rash. MSK: Denies joint pain. NEURO: Denies headache ROS Other: All systems not noted in ROS Statement are negative. Past Medical History Past Medical History: GERD/Reflux Additional Past Medical History / Comment(s): panic disorder, depression, anxiety, bipolar History of Any Multi-Drug Resistant Organisms: Other MDRO Past Surgical History: Cholecystectomy, Hernia Repair, Hysterectomy Past Anesthesia/Blood Transfusion Reactions: No Reported Reaction Past Psychological History: Anxiety, Bipolar, Depression, Panic Disorder Smoking Status: Current every day smoker Past Alcohol Use History: None Reported Past Drug Use History: None Reported General Exam - General Exam Comments Initial Comments: General: Appears sleepy and altered. I suspect polypharmacy. HEAD: Normal with no signs of head trauma. EYES: PERRLA, EOMI, conjunctiva normal, no discharge. Pupils are somewhat dilated bilaterally to 4-5 mm. They're equal bilaterally. ENT: Hearing grossly intact, normal oropharynx. RESPIRATORY: Clear breath sounds bilaterally. No wheezes, rales, or rhonchi. C/V: Regular rate and rhythm. S1 and S2 auscultated, no edema, peripheral pulses 2+ and intact throughout ABD: Abd is soft, nontender, nondistended EXT: Normal range of motion, no obvious deformity SKIN: No rashes or lesions observed on exposed skin. NEURO: Alert and oriented times one to 2. Per patient's ex-, Baseline is alert and oriented 3-4. No focal sensory or strength deficits at this time. NIH appears to be 0. GCS is 15. Limitations: altered mental status Course Vital Signs 01/16/21 01/16/21 18:42 22:38 Pulse Rate 88 Respiratory 18 18 Rate Blood Pressure 129/86 O2 Sat by Pulse 92 L Oximetry Medical Decision Making - Medical Decision Making Based on the patient's presentation and physical exam, I do suspect polypharmacy as the source of her current complaints. I cannot rule out the possibility of other etiology at this time therefore brought workup will be obtained. This included CT imaging as well as basic laboratory studies, a urinalysis, as well as EKG. Patient's ex- was in agreement this plan. Patient's EKG shows no signs of acute ischemia. Brain CT reveals no acute intracranial process. Chest x-ray shows no acute cardiopulmonary process. Laboratory studies are remarkable for a mild leukocytosis of 16.8. Troponin is negative. Urinalysis is concerning for an acute urinary tract infection. Tox workup showed a positive UDS for TCAs as well as benzos. On reevaluation, patient is more alert at this time, alert and oriented 2 but she is still uncertain of the time. She is more alert. She is some mild difficulty walking. She is below her baseline overall. I spoke with her as well as the ex and I would like to admitted to the hospital to observation for further monitoring until she returns to her normal baseline mental status. There were in agreement this plan. Altered mental status is likely secondary to polypharmacy as well as UTI. She'll be given a dose of Rocephin and started on daily Rocephin. There were no agreement this plan. Spoke with the admitting team under [facility] who accepted the patient. Patient was therefore admitted to observation telemetry in stable condition. - Lab Data Result diagrams: 01/16/21 18:34 01/16/21 18:34 Lab Results 01/16/21 01/16/21 01/16/21 Range/Units 16:28 18:34 18:34 WBC 16.8 H (3.8-10.6) k/uL RBC 4.94 (3.80-5.40) m/uL Hgb 16.4 H (11.4-16.0) gm/dL Hct 47.3 H (34.0-46.0) % MCV 95.6 (80.0-100.0) fL MCH 33.2 (25.0-35.0) pg MCHC 34.7 (31.0-37.0) g/dL RDW 13.9 (11.5-15.5) % Plt Count 410 (150-450) k/uL MPV 7.0 Neutrophils % 87 % Lymphocytes % 9 % Monocytes % 3 % Eosinophils % 1 % Basophils % 0 % Neutrophils # 14.6 H (1.3-7.7) k/uL Lymphocytes # 1.5 (1.0-4.8) k/uL Monocytes # 0.4 (0-1.0) k/uL Eosinophils # 0.2 (0-0.7) k/uL Basophils # 0.0 (0-0.2) k/uL PT 10.4 (9.0-12.0) sec INR 1.0 (<1.2) APTT 24.9 (22.0-30.0) sec Sodium (137-145) mmol/L Potassium (3.5-5.1) mmol/L Chloride (98-107) mmol/L Carbon Dioxide (22-30) mmol/L Anion Gap mmol/L BUN (7-17) mg/dL Creatinine (0.52-1.04) mg/dL Est GFR (CKD-EPI)AfAm (>60 ml/min/1.73 sqM) Est GFR (CKD-EPI)NonAf (>60 ml/min/1.73 sqM) Glucose (74-99) mg/dL POC Glucose (mg/dL) 168 H (75-99) mg/dL POC Glu Chlorinator ID Meryl Sow Calcium (8.4-10.2) mg/dL Total Bilirubin (0.2-1.3) mg/dL AST (14-36) U/L ALT (4-34) U/L Alkaline Phosphatase (38-126) U/L Troponin I (0.000-0.034) ng/mL Total Protein (6.3-8.2) g/dL Albumin (3.5-5.0) g/dL Urine Color Urine Appearance (Clear) Urine pH (5.0-8.0) Ur Specific [place] (1.001-1.035) Urine Protein (Negative) Urine Glucose (UA) (Negative) Urine Ketones (Negative) Urine Blood (Negative) Urine Nitrite (Negative) Urine Bilirubin (Negative) Urine Urobilinogen (<2.0) mg/dL Ur Leukocyte Esterase (Negative) Urine RBC (0-5) /hpf Urine WBC (0-5) /hpf Ur Squamous Epith Cells (0-4) /hpf Urine Bacteria (None) /hpf Urine Mucus (None) /hpf Salicylates mg/dL Urine Opiates Screen (NotDetected) Ur Oxycodone Screen (NotDetected) Urine Methadone Screen (NotDetected) Ur Propoxyphene Screen (NotDetected) Acetaminophen ug/mL Ur Barbiturates Screen (NotDetected) U Tricyclic Antidepress (NotDetected) Ur Phencyclidine Scrn (NotDetected) Ur Amphetamines Screen (NotDetected) U Methamphetamines Scrn (NotDetected) U Benzodiazepines Scrn (NotDetected) Urine Cocaine Screen (NotDetected) U Marijuana (THC) Screen (NotDetected) Serum Alcohol mg/dL 01/16/21 01/16/21 01/16/21 Range/Units 18:34 18:34 20:09 WBC (3.8-10.6) k/uL RBC (3.80-5.40) m/uL Hgb (11.4-16.0) gm/dL Hct (34.0-46.0) % MCV (80.0-100.0) fL MCH (25.0-35.0) pg MCHC (31.0-37.0) g/dL RDW (11.5-15.5) % Plt Count (150-450) k/uL MPV Neutrophils % % Lymphocytes % % Monocytes % % Eosinophils % % Basophils % % Neutrophils # (1.3-7.7) k/uL Lymphocytes # (1.0-4.8) k/uL Monocytes # (0-1.0) k/uL Eosinophils # (0-0.7) k/uL Basophils # (0-0.2) k/uL PT (9.0-12.0) sec INR (<1.2) APTT (22.0-30.0) sec Sodium 135 L (137-145) mmol/L Potassium 4.8 (3.5-5.1) mmol/L Chloride 102 (98-107) mmol/L Carbon Dioxide 27 (22-30) mmol/L Anion Gap 6 mmol/L BUN 7 (7-17) mg/dL Creatinine 0.79 (0.52-1.04) mg/dL Est GFR (CKD-EPI)AfAm >90 (>60 ml/min/1.73 sqM) Est GFR (CKD-EPI)NonAf >90 (>60 ml/min/1.73 sqM) Glucose 117 H (74-99) mg/dL POC Glucose (mg/dL) (75-99) mg/dL POC Glu Chlorinator ID Calcium 9.3 (8.4-10.2) mg/dL Total Bilirubin 0.4 (0.2-1.3) mg/dL AST 29 (14-36) U/L ALT 15 (4-34) U/L Alkaline Phosphatase 100 (38-126) U/L Troponin I <0.012 (0.000-0.034) ng/mL Total Protein 7.0 (6.3-8.2) g/dL Albumin 3.8 (3.5-5.0) g/dL Urine Color Yellow Urine Appearance Cloudy H (Clear) Urine pH 7.0 (5.0-8.0) Ur Specific Yale 1.009 (1.001-1.035) Urine Protein Trace H (Negative) Urine Glucose (UA) Negative (Negative) Urine Ketones Negative (Negative) Urine Blood Negative (Negative) Urine Nitrite Negative (Negative) Urine Bilirubin Negative (Negative) Urine Urobilinogen <2.0 (<2.0) mg/dL Ur Leukocyte Esterase Moderate H (Negative) Urine RBC 2 (0-5) /hpf Urine WBC 34 H (0-5) /hpf Ur Squamous Epith Cells 2 (0-4) /hpf Urine Bacteria Moderate H (None) /hpf Urine Mucus Rare H (None) /hpf Salicylates <1.0 mg/dL Urine Opiates Screen Not Detected (NotDetected) Ur Oxycodone Screen Not Detected (NotDetected) Urine Methadone Screen Not Detected (NotDetected) Ur Propoxyphene Screen Not Detected (NotDetected) Acetaminophen <10.0 ug/mL Ur Barbiturates Screen Not Detected (NotDetected) U Tricyclic Antidepress Detected H (NotDetected) Ur Phencyclidine Scrn Not Detected (NotDetected) Ur Amphetamines Screen Not Detected (NotDetected) U Methamphetamines Scrn Not Detected (NotDetected) U Benzodiazepines Scrn Detected H (NotDetected) Urine Cocaine Screen Not Detected (NotDetected) U Marijuana (THC) Screen Not Detected (NotDetected) Serum Alcohol <10 mg/dL - EKG Data -: EKG Interpreted by Me EKG Comments: 12-lead Electrocardiogram Interpretation Note EKG was reviewed and interpreted by myself. 12-lead ECG performed at 1621 is interpreted by me as revealing normal sinus rhythm at a rate of 88 beats per minute. [place] is normal. MT Intervals 166 seconds, QRS duration is 86 ms, QTc is 484 ms.. There were no ST or T wave abnormalities to suggest myocardial ischemia or injury. R wave progression across the precordium was satisfactory. By my interpretation this EKG is non-diagnostic for acute ischemia. Disposition Clinical Impression: Altered mental status, Polypharmacy, UTI (urinary tract infection), Leukocytosis Disposition: ADMITTED IP TO THIS HOSP Condition: Stable Referrals: Mikael Mai DO [Primary Care Provider] - 1-2 days
--- NOTE | 2021-01-16 19:24 | CT ---
EXAMINATION: CT brain wo con DATE AND TIME: 01/16/2021 7:01 PM CLINICAL INDICATION: PHH; Altered mental status TECHNIQUE: Standard departmental protocol.; 1170.4 mGy-cm COMPARISON: None. FINDINGS: The calvarium is intact. There is no intracranial hemorrhage. There is no intracranial mass or mass effect. No definite new intra-axial or extra-axial attenuation defect. The paranasal sinuses, middle ear cavities, and mastoid sinus air cells are clear. The orbits are unremarkable. IMPRESSION: NO ACUTE PROCESS.
[2021-01-16 19:25] VITALS: RESP 18
--- NOTE | 2021-01-16 19:28 | XR ---
EXAMINATION: XR chest 2V DATE AND TIME: 01/16/2021 7:03 PM CLINICAL INDICATION: 45 yo; altered mental status TECHNIQUE: AP and lateral COMPARISON: 04/06/2020 FINDINGS: The lungs are clear. The pleural spaces are negative. The cardiac silhouette is not enlarged. The remainder of the mediastinal silhouette is unremarkable. The skeletal structures and soft tissues are negative for acute findings. IMPRESSION: NO ACUTE PROCESS.
[2021-01-16 20:15] LABS: Appearance,Urine Cloudy (Clear); Bacteria,Urine Moderate /hpf; Bilirubin,Urine Negative (Negative); Blood,Urine Negative (Negative); Color,Urine Yellow; Glucose,Urine (UA) Negative (Negative); Ketones,Urine Negative (Negative); Leukocyte Esterase,Urine Moderate (Negative); Mucus,Urine Rare /hpf; Nitrite,Urine Negative (Negative); Protein,Urine Trace (Negative); RBC,Urine 2 /hpf (0-5); Specific Gravity,Urine 1.009 (1.001-1.035); Squamous Epithelial Cell,Urine 2 /hpf (0-4); Urobilinogen,Urine <2.0 mg/dL (<2.0); WBC,Urine 34 /hpf (0-5)
[2021-01-16 20:28] LABS: Amphetamine Screen,Urine Not Detected (NotDetected); Barbiturate Screen,Urine Not Detected (NotDetected); Benzodiazepines Screen,Urine Detected (NotDetected); Cocaine Screen,Urine Not Detected (NotDetected); Methadone Screen, Urine Not Detected (NotDetected); Opiate Screen,Urine Not Detected (NotDetected); Oxycodone Screen, Urine Not Detected (NotDetected); Phencyclidine Screen,Urine Not Detected (NotDetected); Tricyclic Antidepressant,Urine Detected (NotDetected); Urn Cannabinoid Scrn Not Detected (NotDetected)
[2021-01-16] MEDS ORDERED: cefTRIAXone IN SWFI 1,000 MG/10 ML SYRINGE IVP STA (20:39)
[2021-01-16] MEDS ORDERED: NALOXONE 0.4 MG/ML 1 ML VIAL IV PRN (21:35)
[2021-01-16] MEDS ORDERED: KETOROLAC 15 MG/ML 1 ML VIAL IVP PRN (21:35)
[2021-01-16] MEDS ORDERED: ONDANSETRON 4 MG/2 ML VIAL IVP PRN (21:35)
[2021-01-16] MEDS ORDERED: BENZTROPINE MESYLATE 1 MG TAB PO SCH (21:45)
[2021-01-16] MEDS: lamoTRIgine 100 MG TAB PO SCH ×2 (22:36)
[2021-01-17] MEDS ORDERED: PANTOPRAZOLE 40 MG TABLET PO SCH (07:30)
[2021-01-17] MEDS: lamoTRIgine 100 MG TAB PO SCH ×2 (08:55→10:12)
[2021-01-17 08:59] VITALS: BP 130/86; PULSE 86; TEMP 98.2
[2021-01-17] MEDS ORDERED: VENLAFAXINE HCL ER 75 MG CAP PO SCH (09:00)
--- NOTE | 2021-01-17 13:29 | P.HPIM ---
History of Present Illness Patient is a 45-year-old female came in because of altered mental status drowsiness patient was believed to have taken more of her Ativan that recommended. Patient's Ativan dose was recently increased to 2 mg every 6 hourly by her primary care physician. Patient is alert oriented 3 patient is not much confused but still unable to provide me good history may because of her psychiatric issues patient doesn't exactly know why she is on benztropine, patient is on Seroquel. I'm consulting psychiatry further titration of her med ications once they evaluated the patient patient probably can be discharged patient is awake enough to be discharged today. REVIEW OF SYSTEMS: CONSTITUTIONAL: No fever, no malaise, no fatigue. HEENT: No recent visual problems or hearing problems. Denied any sore throat. CARDIOVASCULAR: No chest pain, orthopnea, PND, no palpitations, no syncope. PULMONARY: No shortness of breath, no cough, no hemoptysis. GASTROINTESTINAL: No diarrhea, no nausea, no vomiting, no abdominal pain. NEUROLOGICAL: No headaches, no weakness, no numbness. HEMATOLOGICAL: Denies any bleeding or petechiae. GENITOURINARY: Denies any burning micturition, frequency, or urgency. MUSCULOSKELETAL/RHEUMATOLOGICAL: Denies any joint pain, swelling, or any muscle pain. ENDOCRINE: Denies any polyuria or polydipsia. The rest of the 14-point review of systems is negative. PHYSICAL EXAMINATION: GENERAL: The patient is alert and oriented x3, not in any acute distress. Well developed, well nourished. HEENT: Pupils are round and equally reacting to light. EOMI. No scleral icterus. No conjunctival pallor. Normocephalic, atraumatic. No pharyngeal erythema. No thyromegaly. CARDIOVASCULAR: S1 and S2 present. No murmurs, rubs, or gallops. PULMONARY: Chest is clear to auscultation, no wheezing or crackles. ABDOMEN: Soft, nontender, nondistended, normoactive bowel sounds. No palpable organomegaly. MUSCULOSKELETAL: No joint swelling or deformity. EXTREMITIES: No cyanosis, clubbing, or pedal edema. NEUROLOGICAL: Gross neurological examination did not reveal any focal deficits. SKIN: No rashes. Assessment and plan -Altered mental status: Secondary to toxic encephalopathy from medications. Discussed with psychiatry they're recommending cutting down the benzodiazepine which will be cut down to 1 mg 3 times a day when necessary and Cogentin dose will be decreased from 2 mg to 1 mg twice a day, patient does have tardive dyskinesia for which patient can be started on medication as an outpatient. -Tardive dyskinesia management as mentioned - leukocytosis reactive without any evidence of infection at this time. UA is not consistent with UTI patient doesn't have any symptoms at this time and there is an alternate expiration for her confusion and her confusion presently resolved --Bipolar disorder -Depression Patient will be discharged today Past Medical History Past Medical History: GERD/Reflux Additional Past Medical History / Comment(s): panic disorder, depression, anxiety, bipolar History of Any Multi-Drug Resistant Organisms: Other MDRO Past Surgical History: Cholecystectomy, Hernia Repair, Hysterectomy Past Anesthesia/Blood Transfusion Reactions: No Reported Reaction Past Psychological History: Anxiety, Bipolar, Depression, Panic Disorder Additional Psychological History / Comment(s): SUICIDE ATTEMPT BY DRUG OVERDOSE 11/01/13 Smoking Status: Current every day smoker Past Alcohol Use History: None Reported Past Drug Use History: None Reported Medications and Allergies Home Medications Medication Instructions Recorded Confirmed Type Venlafaxine HCl [Effexor XR] 75 mg PO DAILY 12/26/13 01/16/21 History Omeprazole 20 mg PO BID 02/07/20 01/16/21 History QUEtiapine FUMARATE [SEROquel] 300 mg PO HS 02/07/20 01/16/21 History lamoTRIgine [LaMICtal] 100 mg PO BID 02/07/20 01/16/21 History lamoTRIgine [LaMICtal] 200 mg PO BID 02/07/20 01/16/21 History Trospium Chloride 20 mg PO BID 01/16/21 01/16/21 History Benztropine Mesylate [Cogentin] 1 mg PO BID #0 01/17/21 01/16/21 Rx LORazepam [Ativan] 1 mg PO TID PRN #0 01/17/21 01/16/21 Rx Allergies Allergy/AdvReac Type Severity Reaction Status Date / Time amoxicillin [Amoxicillin] AdvReac Abdominal Verified 01/16/21 17:52 Pain Physical Exam Vitals: Vital Signs Temp Pulse Pulse Resp BP BP Pulse Ox 01/17/21 08:57 98.2 F 86 18 130/86 92 L 01/17/21 04:52 98.9 F 82 18 113/79 92 L 01/17/21 02:00 86 18 01/17/21 01:46 97.7 F 86 18 124/79 93 L 01/17/21 00:50 94 18 122/96 92 L 01/16/21 22:38 88 18 129/86 92 L 01/16/21 18:42 18 Intake and Output 01/16/21 01/17/21 01/17/21 22:59 06:59 14:59 Other: Weight 83.915 kg 83.915 kg Results CBC & Chem 7: 01/16/21 18:34 01/16/21 18:34 Labs: Abnormal Lab Results - Last 24 Hours (Table) 01/16/21 01/16/21 01/16/21 Range/Units 16:28 18:34 18:34 WBC 16.8 H (3.8-10.6) k/uL Hgb 16.4 H (11.4-16.0) gm/dL Hct 47.3 H (34.0-46.0) % Neutrophils # 14.6 H (1.3-7.7) k/uL Sodium 135 L (137-145) mmol/L Glucose 117 H (74-99) mg/dL POC Glucose (mg/dL) 168 H (75-99) mg/dL Urine Appearance (Clear) Urine Protein (Negative) Ur Leukocyte Esterase (Negative) Urine WBC (0-5) /hpf Urine Bacteria (None) /hpf Urine Mucus (None) /hpf U Tricyclic Antidepress (NotDetected) U Benzodiazepines Scrn (NotDetected) 01/16/21 Range/Units 20:09 WBC (3.8-10.6) k/uL Hgb (11.4-16.0) gm/dL Hct (34.0-46.0) % Neutrophils # (1.3-7.7) k/uL Sodium (137-145) mmol/L Glucose (74-99) mg/dL POC Glucose (mg/dL) (75-99) mg/dL Urine Appearance Cloudy H (Clear) Urine Protein Trace H (Negative) Ur Leukocyte Esterase Moderate H (Negative) Urine WBC 34 H (0-5) /hpf Urine Bacteria Moderate H (None) /hpf Urine Mucus Rare H (None) /hpf U Tricyclic Antidepress Detected H (NotDetected) U Benzodiazepines Scrn Detected H (NotDetected) Microbiology - Last 24 Hours (Table) 01/16/21 20:09 Urine Culture - Preliminary Urine,Voided Thrombosis Risk Factor Assmnt - Choose All That Apply Each Factor Represents 1 point: Age 41-60 years, Obesity (BMI >25) Thrombosis Risk Factor Assessment Total Risk Factor Score: 2 Thrombosis Risk Factor Assessment Level: Low Risk
--- NOTE | 2021-01-17 13:39 | P.DS ---
Providers Date of admission: 01/16/21 21:35 Attending physician: Isai Denny Consults: 01/17/21 08:43 Consult Physician Stat Consulting Provider: William Leon Consult Reason/Comments: Per Dr. Adair. Do you want consulting provider notified?: Yes Primary care physician: Mikael Mai [facility] Course: Please refer to my HPI for further details Patient Condition at Discharge: Stable Plan - Discharge Summary New Discharge Prescriptions: Continue Venlafaxine HCl [Effexor XR] 75 mg PO DAILY lamoTRIgine [LaMICtal] 100 mg PO BID lamoTRIgine [LaMICtal] 200 mg PO BID Omeprazole 20 mg PO BID QUEtiapine FUMARATE [SEROquel] 300 mg PO HS Trospium Chloride 20 mg PO BID Changed Benztropine Mesylate [Cogentin] 1 mg PO BID #0 LORazepam [Ativan] 1 mg PO TID PRN #0 PRN Reason: Anxiety Discontinued Benztropine Mesylate [Cogentin] 2 mg PO DAILY Discharge Medication List Venlafaxine HCl [Effexor XR] 75 mg PO DAILY 12/26/13 [History] Omeprazole 20 mg PO BID 02/07/20 [History] QUEtiapine FUMARATE [SEROquel] 300 mg PO HS 02/07/20 [History] lamoTRIgine [LaMICtal] 100 mg PO BID 02/07/20 [History] lamoTRIgine [LaMICtal] 200 mg PO BID 02/07/20 [History] Trospium Chloride 20 mg PO BID 01/16/21 [History] Benztropine Mesylate [Cogentin] 1 mg PO BID #0 01/17/21 [Rx] LORazepam [Ativan] 1 mg PO TID PRN #0 01/17/21 [Rx] Follow up Appointment(s)/Referral(s): Mikael Mai DO [Primary Care Provider] - 3 Days [facility] [NON-STAFF] - 1 Week Discharge Disposition: HOME SELF-CARE
--- NOTE | 2021-01-17 13:46 | P.CN ---
Psychiatric Consult - . Consult date: 01/17/21 Consult:: 01/17/21 13:46 IDENTIFYING DATA: This patient is a , on social security disability, 45-year-old female with a significant history of bipolar depression who presented to the hospital for altered mental status. HISTORY OF PRESENT ILLNESS: The patient presented to the hospital on 01/17/2021, brought in by her family due to altered mental status and increased drowsiness. The patient's Ativan dose was recently increased to 2 mg every 6 hours by her primary care physician. Upon evaluation in the emergency department by the psychiatrist, the patient is currently alert and oriented to person and place but not to time. She does recall being brought to the hospital by her ex- and her son but is otherwise not able to provide any significant history of events leading up to this hospitalization. Collateral information was obtained by the patient's Binu De La Rosa with permission granted by the patient. He reports that he first noticed the change in mentation from his ex- yesterday. He does state that the patient recently had the increase in Ativan. He suspects that this is the primary cause for her change in her mental status. He reports that the patient has otherwise not been displaying any significant symptoms regarding her bipolar disorder. He states that he manages her medications and she has otherwise been taking the medications as directed. He reports that the patient is prescribed her psychotropic medications through her outpatient psychiatrist at [facility] in [facility]. Currently, the patient is not reporting any suicidal or homicidal ideation, intention, and/or plan. She denies any auditory or visual hallucinations. She is reporting no paranoia or other delusions. She is not reporting any significant issues regarding any psychiatric pathology denies any current manic or hypomanic symptoms. She reports no increased goal-directed behavior, impulsivity, or mood swings. PAST PSYCHIATRIC HISTORY: Patient has a history of bipolar disorder and anxiety. The patient is currently on a home prescribed medication regimen of Effexor, Seroquel, Lamictal, and Cogentin. She was recently switched from Klonopin to Ativan as per MAPs report with an increase in ativan to 2 mg three times daily. The patient has had 1 prior inpatient psychiatric admission in 2013 after attempting suicide by overdose. The patient was admitted to [facility]. As per , the patient is currently open with the [facility]. PAST MEDICAL HISTORY: Past Medical History: GERD/Reflux Additional Past Medical History / Comment(s): panic disorder, depression, anxiety, bipolar History of Any Multi-Drug Resistant Organisms: Other MDRO Past Surgical History: Cholecystectomy, Hernia Repair, Hysterectomy Past Anesthesia/Blood Transfusion Reactions: No Reported Reaction Past Psychological History: Anxiety, Bipolar, Depression, Panic Disorder Additional Psychological History / Comment(s): SUICIDE ATTEMPT BY DRUG OVERDOSE 11/01/13 Smoking Status: Current every day smoker Past Alcohol Use History: None Reported Past Drug Use History: None Reported ALLERGIES: Amoxicillin CHEMICAL DEPENDENCY HISTORY: Patient reports that she smokes approximately 1 pack per day. She denies any significant alcohol, marijuana, or illicit drug use. FAMILY PSYCHIATRIC/SUBSTANCE USE HISTORY: The patient reports that 2 of her paternal aunts are bipolar. SOCIAL HISTORY: Patient from her in 2019 after being for 17 years. However, the patient reports that she and her ex- Binu and her best friends. She reports that she has a son named Arnoldo who is 22 years old and currently lives with her. MENTAL STATUS EXAM: General Appearance: Patient appears to be stated age is alert, pleasant, and cooperative. Patient appears to have fair hygiene and grooming wearing hospital gown with fair eye contact. Behavior: Patient is calmly lying in bed without any agitated behavior. Speech: Patient's speech is fluent and nonpressured. Mood/Affect: Patient reports their mood is "I'm doing okay", affect is congruent, euthymic, appropriate range. Suicidality/Homicidality: Patient denies having any suicidal or homicidal ideation intent or plan. Perceptions: Patient denies any visual hallucinations and denies any auditory hallucinations Though content/process: There is no evidence of any delusional thought content and thought process is linear and goal-directed. Memory and concentration: Patient is alert and oriented to person and place only but not to time. Can spell "WORLD" backwards Judgment and insight: Mildly improving Vital Signs Temp 98.2 F 01/17/21 08:57 Pulse 86 01/17/21 08:57 Resp 18 01/17/21 08:57 BP 130/86 01/17/21 08:57 Pulse Ox 92 L 01/17/21 08:57 Intake & Output 01/16/21 01/17/21 01/17/21 18:59 06:59 18:59 Weight 83.915 kg 83.915 kg Laboratory Results WBC 16.8 k/uL (3.8-10.6) H 01/16/21 18:34 RBC 4.94 m/uL (3.80-5.40) 01/16/21 18:34 Hgb 16.4 gm/dL (11.4-16.0) H 01/16/21 18:34 Hct 47.3 % (34.0-46.0) H 01/16/21 18:34 MCV 95.6 fL (80.0-100.0) 01/16/21 18:34 MCH 33.2 pg (25.0-35.0) 01/16/21 18:34 MCHC 34.7 g/dL (31.0-37.0) 01/16/21 18:34 RDW 13.9 % (11.5-15.5) 01/16/21 18:34 Plt Count 410 k/uL (150-450) 01/16/21 18:34 MPV 7.0 01/16/21 18:34 Neutrophils % 87 % 01/16/21 18:34 Lymphocytes % 9 % 01/16/21 18:34 Monocytes % 3 % 01/16/21 18:34 Eosinophils % 1 % 01/16/21 18:34 Basophils % 0 % 01/16/21 18:34 Neutrophils # 14.6 k/uL (1.3-7.7) H 01/16/21 18:34 Lymphocytes # 1.5 k/uL (1.0-4.8) 01/16/21 18:34 Monocytes # 0.4 k/uL (0-1.0) 01/16/21 18:34 Eosinophils # 0.2 k/uL (0-0.7) 01/16/21 18:34 Basophils # 0.0 k/uL (0-0.2) 01/16/21 18:34 PT 10.4 sec (9.0-12.0) 01/16/21 18:34 INR 1.0 (<1.2) 01/16/21 18:34 APTT 24.9 sec (22.0-30.0) 01/16/21 18:34 Sodium 135 mmol/L (137-145) L 01/16/21 18:34 Potassium 4.8 mmol/L (3.5-5.1) 01/16/21 18:34 Chloride 102 mmol/L (98-107) 01/16/21 18:34 Carbon Dioxide 27 mmol/L (22-30) 01/16/21 18:34 Anion Gap 6 mmol/L 01/16/21 18:34 BUN 7 mg/dL (7-17) 01/16/21 18:34 Creatinine 0.79 mg/dL (0.52-1.04) 01/16/21 18:34 Est GFR (CKD-EPI)AfAm >90 (>60 ml/min/1.73 sqM) 01/16/21 18:34 Est GFR (CKD-EPI)NonAf >90 (>60 ml/min/1.73 sqM) 01/16/21 18:34 Glucose 117 mg/dL (74-99) H 01/16/21 18:34 POC Glucose (mg/dL) 168 mg/dL (75-99) H 01/16/21 16:28 POC Glu [employer] GLORIA Meryl Sow 01/16/21 16:28 Calcium 9.3 mg/dL (8.4-10.2) 01/16/21 18:34 Total Bilirubin 0.4 mg/dL (0.2-1.3) 01/16/21 18:34 AST 29 U/L (14-36) 01/16/21 18:34 ALT 15 U/L (4-34) 01/16/21 18:34 Alkaline Phosphatase 100 U/L (38-126) 01/16/21 18:34 Troponin I <0.012 ng/mL (0.000-0.034) 01/16/21 18:34 Total Protein 7.0 g/dL (6.3-8.2) 01/16/21 18:34 Albumin 3.8 g/dL (3.5-5.0) 01/16/21 18:34 Urine Color Yellow 01/16/21 20:09 Urine Appearance Cloudy (Clear) H 01/16/21 20:09 Urine pH 7.0 (5.0-8.0) 01/16/21 20:09 Ur Specific Chandler 1.009 (1.001-1.035) 01/16/21 20:09 Urine Protein Trace (Negative) H 01/16/21 20:09 Urine Glucose (UA) Negative (Negative) 01/16/21 20:09 Urine Ketones Negative (Negative) 01/16/21 20:09 Urine Blood Negative (Negative) 01/16/21 20:09 Urine Nitrite Negative (Negative) 01/16/21 20:09 Urine Bilirubin Negative (Negative) 01/16/21 20:09 Urine Urobilinogen <2.0 mg/dL (<2.0) 01/16/21 20:09 Ur Leukocyte Esterase Moderate (Negative) H 01/16/21 20:09 Urine RBC 2 /hpf (0-5) 01/16/21 20:09 Urine WBC 34 /hpf (0-5) H 01/16/21 20:09 Ur Squamous Epith Cells 2 /hpf (0-4) 01/16/21 20:09 Urine Bacteria Moderate /hpf (None) H 01/16/21 20:09 Urine Mucus Rare /hpf (None) H 01/16/21 20:09 Salicylates <1.0 mg/dL 01/16/21 18:34 Urine Opiates Screen Not Detected (NotDetected) 01/16/21 20:09 Ur Oxycodone Screen Not Detected (NotDetected) 01/16/21 20:09 Urine Methadone Screen Not Detected (NotDetected) 01/16/21 20:09 Ur Propoxyphene Screen Not Detected (NotDetected) 01/16/21 20:09 Acetaminophen <10.0 ug/mL 01/16/21 18:34 Ur Barbiturates Screen Not Detected (NotDetected) 01/16/21 20:09 U Tricyclic Antidepress Detected (NotDetected) H 01/16/21 20:09 Ur Phencyclidine Scrn Not Detected (NotDetected) 01/16/21 20:09 Ur Amphetamines Screen Not Detected (NotDetected) 01/16/21 20:09 U Methamphetamines Scrn Not Detected (NotDetected) 01/16/21 20:09 U Benzodiazepines Scrn Detected (NotDetected) H 01/16/21 20:09 Urine Cocaine Screen Not Detected (NotDetected) 01/16/21 20:09 U Marijuana (THC) Screen Not Detected (NotDetected) 01/16/21 20:09 Serum Alcohol <10 mg/dL 01/16/21 18:34 Coronavirus (PCR) Not Detected (Not Detectd) 01/17/21 00:50 IMPRESSIONS: Altered mental status likely secondary to medication side effect. Tardive dyskinesia Bipolar disorder Urinary tract infection PLAN: -At this time patient DOES NOT meet criteria for inpatient psychiatric admission. The patient is presenting with mental status changes but is otherwise not endorsing any imminent risk of harm to self or others. She is currently alert and oriented to person and place but not time. She is vehemently denying any suicidal or homicidal ideation, intention, and/or plan. She has significant support from her family. -Would recommend the following medication changes/additions: Agree with the decrease in Ativan to 1 mg 3 times a day when necessary to decrease polypharmacy/mental status changes secondary to benzodiazepine use Recommend decreasing Cogentin to 1 mg by mouth twice a day for management of EPS symptoms. We will defer to the outpatient psychiatrist/neurologist for management of the patient's tardive dyskinesia. This provider discussed with the patient's ex- to inqure about ingrezza or austedo for this. Continue other psychiatric medications. -The patient is psychiatrically cleared for discharge. Recommend outpatient psychiatric follow-up. Psychiatry will sign off at this time. Thank you for this consult. Please reconsult us or call us if necessary. 01/17/21 13:46
== END 2021-01-17 15:19 | disposition home or self-care (01) ==
LOC: EC 16:01 → 6NMEDSUR 21:35
PROVIDERS: ADMIT Hospitalist; ATTEND Hospitalist
DX: D72.829 Elevated white blood cell count, unspecified (principal); G92.00 Immune effector cell-associated neurotoxicity syndrome, grade unspecified; K21.9 Gastro-esophageal reflux disease without esophagitis; F31.9 Bipolar disorder, unspecified; F41.0 Panic disorder [episodic paroxysmal anxiety]; F41.9 Anxiety disorder, unspecified; F17.210 Nicotine dependence, cigarettes, uncomplicated; G24.01 Drug induced subacute dyskinesia; E66.9 Obesity, unspecified; Z68.28 Body mass index [BMI] 28.0-28.9, adult; T50.905A Adverse effect of unspecified drugs, medicaments and biological substances, initial encounter; Z20.822 Contact with and (suspected) exposure to COVID-19; Z79.899 Other long term (current) drug therapy; Z88.0 Allergy status to penicillin; Z90.49 Acquired absence of other specified parts of digestive tract; Z90.710 Acquired absence of both cervix and uterus; Z16.24 Resistance to multiple antibiotics; Z81.8 Family history of other mental and behavioral disorders; Z91.51 Personal history of suicidal behavior
CPT/HCPCS: 96374; 96375; 99285; 36415; 93005; 80053; 84484; 85025; 85610; 85730; 81001; 80306; 80143; 87086; 87077; 87186; 87635; 80179; 71046; 70450; G0378 ×2; G0480; J2405; J0696; 80320

== ENCOUNTER 2021-05-16 09:59 | Day surgery (SDC) | payer MEDICARE, OTHER ==
[2021-05-15 08:55] VITALS: BMI 38.2
--- NOTE | 2021-05-16 05:23 | HP ---
HISTORY AND PHYSICAL CHIEF COMPLAINT: Chronic laryngitis. HISTORY OF PRESENT ILLNESS: This patient is a 45-year-old female who was recently seen in my office complaining of having chronic laryngitis for at least 2 months. The patient states that she still continues to smoke approximately 1/2 to 1 pack of cigarettes per day despite being told to quit for obvious health reasons. At the time that she was seen in my office, clinical examination of the larynx via indirect laryngoscopy reveals significant swelling of both true vocal cords. However, there was an overhanging epiglottis and I was not able to see the patient's anterior most portion of the larynx. The patient was placed on a course of dexamethasone for 10 days. She returned to the office and it was noted that she was still quite hoarse, but again she was still continuing to smoke. Because of concern of possible laryngeal lesion, it was recommended that the patient undergo a suspension microlaryngoscopy with possible biopsy. PAST MEDICAL HISTORY: Reveals the patient has no known allergies to medications. MEDICATIONS: Her current medications include Klonopin, Myrbetriq, Prilosec, lamotrigine, Quetiapine, Trospium, Venlafaxine, and she also uses an inhaler for her COPD/emphysema. REVIEW OF SYSTEMS: Reveals that the respiratory system is positive for COPD/emphysema. Gastrointestinal system is positive for GERD (gastroesophageal reflux disorder). The remainder of the review of systems is essentially unremarkable. PHYSICAL EXAMINATION: This patient is a 45-year-old female who is alert and cooperative. HEENT examination: Patient is normocephalic. Tympanic membranes are normal. Middle ear spaces are free of any fluid or infection. Pupils equal, round, and reactive to light and accommodation. Extraocular movements within normal limits. Intranasal examination reveals moderate to severe septal deviation with compensatory hypertrophy of the inferior turbinates and a moderate amount of mucus on the mucous membranes and draining down posterior pharynx. Examination of the oropharynx reveals that the indirect laryngoscopy is unchanged since her initial visit. Palpation of the neck, cranial nerves 2 through 12 and the remainder of the head and neck exam are within normal limits. CHEST/CARDIOVASCULAR: Both lung kaur are clear to percussion and auscultation. Lung sounds are somewhat distant. The patient is in regular sinus rhythm. S1 and S2 are present without any murmurs S3s or S4s. Peripheral pulses are bilaterally symmetrical. ABDOMEN: There is no evidence of any masses megaly or tenderness. MUSCULOSKELETAL and NEUROLOGICAL and within normal limits. PELVIC/RECTAL examination: Pelvic rectal exam is deferred at this time because the patient has this performed on a regular basis at her family physician's office. The remainder of physical exam is unremarkable. ASSESSMENT: Chronic laryngitis, suspect laryngeal lesion. PLAN: The patient is scheduled undergo a suspension microlaryngoscopy with probable possible biopsy under general anesthesia. Attention RNs in the pre-surgical area, I have not ordered any pre-surgical prophylactic antibiotic for this patient. If the pharmacy department sends any pre- surgical prophylactic antibiotic to the pre-surgical area for this patient, please cancel that order and return the medication to the pharmacy. Also make sure that the patient's account is credited appropriately. I have ordered for this patient to receive 1000 mg of Ofirmev, to be given once an intravenous line has been established. I have discussed the risks, benefits and alternative therapies for the above-mentioned procedure and for both sedation/analgesia as well as necessary blood product administration, if indicated, as they pertain to this patient. The patient has indicated his or her understanding and acceptance of the risks and procedures discussed. MMODL / IJN: [id number] /
[~2021-05-16 09:59] MED LIST: Pre Op ABX Message 1 EACH MISC MISCELLANE ONE
[2021-05-16] MEDS ORDERED: DEXAMETHASONE SOD PHOSPHATE 4 MG/ML 1 ML VIAL IV ONE (11:30)
[2021-05-16] MEDS ORDERED: HYDROmorphone 0.5 MG/0.5 ML SYRINGE IVP PRN (11:30)
[2021-05-16] MEDS ORDERED: SCOPOLAMINE 1.5MG/72HR PATCH TRANSDERM ONE (11:30)
[2021-05-16] MEDS ORDERED: LACTATED RINGERS 1,000 ML IV SCH (11:30)
[2021-05-16] MEDS ORDERED: ONDANSETRON 4 MG/2 ML VIAL IVP ONE (11:30)
[2021-05-16] MEDS ORDERED: MIDAZOLAM 2 MG/2 ML VIAL IV PRN (11:30)
[2021-05-16] MEDS ORDERED: ACETAMINOPHEN IV (For NPO) 1,000 MG in EMPTY BAG 1 BAG IVPB ONE (12:45)
[2021-05-16] MEDS ORDERED: NEOSTIGMINE 1 MG/ML 10 ML VIAL ONE (12:55)
[2021-05-16] MEDS ORDERED: SUCCINYLCHOLINE CHLORIDE 100 MG/5 ML SYR IV ONE (12:55)
[2021-05-16] MEDS ORDERED: fentaNYL (PF) 50 MCG/ML 2 ML AMP ONE (12:55)
[2021-05-16] MEDS ORDERED: GLYCOPYRROLATE 0.2 MG/ML 2 ML VIAL ONE (12:55)
[2021-05-16] MEDS ORDERED: LIDOCAINE 1% INJ 10MG/ML (20 ML MDV) ONE (12:55)
[2021-05-16] MEDS ORDERED: MIDAZOLAM 2 MG/2 ML VIAL ONE (12:55)
[2021-05-16] MEDS ORDERED: DEXAMETHASONE SOD PHOSPHATE 10 MG/ML 1 ML VIAL ONE (12:55)
[2021-05-16] MEDS ORDERED: ROCURONIUM 10 MG/ML (5 ML VIAL) IV ONE (12:55)
[2021-05-16] MEDS ORDERED: PROPOFOL 10 MG/ML 20 ML VIAL IV ONE (12:55)
[2021-05-16 14:28] VITALS: TEMP 96.9
[2021-05-16 15:05] VITALS: RESP 20
[2021-05-16 15:40] VITALS: BP 118/78; PULSE 98
--- NOTE | 2021-05-18 19:46 | OP ---
OPERATIVE REPORT DATE OF SURGERY: 05/16/2021 PREOPERATIVE DIAGNOSIS: Chronic laryngitis. POSTOPERATIVE DIAGNOSIS: Chronic laryngitis. ANESTHESIA: General. OPERATIVE PROCEDURE: Suspension microlaryngoscopy with biopsy of the left true vocal cord. OPERATING SURGEON: Dr. Monroe. COMPLICATIONS: None. ESTIMATED BLOOD LOSS: Zero. PROCEDURE DESCRIPTION: The patient was placed on the operating table in supine position. After uneventful induction and endotracheal intubation, satisfactory general anesthesia was obtained. Next, the laryngoscope was introduced into the patient's oropharynx and the entire hypopharynx, including the right and left piriform sinuses, base of tongue, valleculae and epiglottis, was inspected and found to be free of any suspicious lesions. It was noted that there was a significant amount of thick cheesy coating on the mucous membranes of the hypopharynx. Next the tip of the laryngoscope was introduced into the laryngeal introitus. The Lewy apparatus was attached to the handle of the laryngoscope and the laryngoscope was suspended on the patient's chest. Next, using the Zeiss operating microscope and under direct magnified vision, one could see that both true vocal cords appeared to be extremely swollen and abnormal in appearance. There was a question of whether there might be either paresis or paralysis of the left true vocal cord. The left true vocal cord was biopsied using a pair of up-biting microlaryngeal forceps and the specimen was sent to Pathology for permanent sectioning in formalin. The patient was given 10 mg of Decadron intraoperatively to reduce any postoperative laryngeal swelling. At this point the procedure was terminated. There were no intraoperative complications. The patient tolerated the procedure well and was returned to the recovery room in satisfactory condition. Final pathology is pending. MMODL / IJN: [id number] /
== END 2021-05-16 15:30 | disposition home or self-care (01) ==
LOC: OR 09:59
PROVIDERS: ATTEND Otolaryngology
DX: R23.4 Changes in skin texture (principal); J38.3 Other diseases of vocal cords; J37.0 Chronic laryngitis; F17.210 Nicotine dependence, cigarettes, uncomplicated; Z79.899 Other long term (current) drug therapy; J43.9 Emphysema, unspecified; K21.9 Gastro-esophageal reflux disease without esophagitis; J34.2 Deviated nasal septum; J34.3 Hypertrophy of nasal turbinates; R41.3 Other amnesia; F41.9 Anxiety disorder, unspecified; F31.9 Bipolar disorder, unspecified; Z90.710 Acquired absence of both cervix and uterus; Z88.0 Allergy status to penicillin; Z88.8 Allergy status to other drugs, medicaments and biological substances
CPT/HCPCS: 88305; 88312; 31536; J2250; J1100; J2710; J2405; J2001; J3010; J0131; J0330; J2704

== ENCOUNTER 2022-05-29 10:59 | Emergency (ER) | payer MEDICARE, OTHER ==
[2022-05-29 11:29] VITALS: BP 118/80; PULSE 104; RESP 18; TEMP 98.6
[2022-05-29] MEDS ORDERED: ACETAMINOPHEN TAB 325 MG TAB PO STA (12:19)
[2022-05-29 12:26] LABS: Amphetamine Screen,Urine Not Detected (NotDetected); Barbiturate Screen,Urine Not Detected (NotDetected); Benzodiazepines Screen,Urine Not Detected (NotDetected); Cocaine Screen,Urine Not Detected (NotDetected); Methadone Screen, Urine Not Detected (NotDetected); Opiate Screen,Urine Not Detected (NotDetected); Oxycodone Screen, Urine Not Detected (NotDetected); Phencyclidine Screen,Urine Not Detected (NotDetected); Tricyclic Antidepressant,Urine Not Detected (NotDetected); Urn Cannabinoid Scrn Not Detected (NotDetected)
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
== END 2022-05-29 13:04 | disposition home or self-care (01) ==
LOC: EC 10:59
DX: F32.A Depression, unspecified (principal); F17.200 Nicotine dependence, unspecified, uncomplicated; K21.9 Gastro-esophageal reflux disease without esophagitis; Z88.1 Allergy status to other antibiotic agents; Z88.8 Allergy status to other drugs, medicaments and biological substances; Z79.899 Other long term (current) drug therapy; Z90.710 Acquired absence of both cervix and uterus; Z90.49 Acquired absence of other specified parts of digestive tract
CPT/HCPCS: 80306; 82075; 99285

== ENCOUNTER → 2022-06-22 | Outpatient (CLI) | payer MEDICARE, OTHER ==
[2022-06-22 17:00] LABS: HCT 50.4 % (37.2-46.3); HGB 16.2 g/dL (12.0-15.0); MCHC 32.1 g/dL (32.0-37.0); MCV 96.4 fL (80.0-97.0); Mean Platelet Volume 9.8 fL (9.5-12.2); NRBC Per 100 WBC 0 /100 WBCS (0.0-0.0); Platelet Count 432 X 10*3/uL (140-440); RBC 5.23 X 10*6/uL (4.10-5.20); RDW 13.2 % (11.5-14.5)
[2022-06-22 17:50] LABS: ALT 22 U/L (8-44); AST 22 U/L (13-35); African American GFR (CKD) 69.2 (60.0-200.0); Albumin 4.4 g/dL (3.8-4.9); Albumin/Globulin Ratio 1.47 (1.60-3.17); Alkaline Phosphatase 118 U/L (41-126); BUN/Creat Ratio 12.18 Ratio (12.00-20.00); Bilirubin, Conjugated <0.20 mg/dL (0.20-0.40); Blood Urea Nitrogen 13.4 mg/dL (9.0-27.0); Calcium 9.8 mg/dL (8.7-10.3); Carbon Dioxide 22.4 mmol/L (20.0-27.5); Chloride 98 mmol/L (96-109); Glucose 110 mg/dL (70-110); Non-African American GFR(CKD) 59.7 (60.0-200.0); Potassium 5.2 mmol/L (3.5-5.5); Sodium 138 mmol/L (135-145); Total Bilirubin <0.15 mg/dL (0.30-1.20); Total Protein 7.4 g/dL (6.2-8.2)
== END | disposition home or self-care (01) ==
LOC: LABWHC1 12:34
PROVIDERS: ATTEND Clinical Nurse Specialist Psychiatric/Mental Health, Community
DX: F34.89 Other specified persistent mood disorders (principal); R53.82 Chronic fatigue, unspecified; R60.9 Edema, unspecified; Z79.899 Other long term (current) drug therapy
CPT/HCPCS: 36415; 80053; 82248; 82306; 84439; 84443; 84481; 85027

== ENCOUNTER 2023-02-26 03:11 | Emergency (ER) | payer MEDICARE, OTHER ==
[2023-02-26 03:33] VITALS: RESP 18
[2023-02-26] MEDS ORDERED: predniSONE 20 MG TAB PO STA (05:27)
[2023-02-26] MEDS ORDERED: PSEUDOEPHEDRINE 12HR 120 MG TABLET.ER PO STA (05:27)
[2023-02-26 05:31] VITALS: TEMP 98.4
--- NOTE | 2023-02-26 05:32 | ED ---
ENT HPI - General Chief complaint: ENT Stated complaint: Sinus infection Source: patient Mode of arrival: ambulatory Limitations: no limitations - History of Present Illness Initial comments: 47-year-old female presents emergency department reporting to sinus headache and facial congestion. States that she has had symptoms going on for the past several weeks. She has been on 2 rounds of antibiotics for the symptoms. Currently on Augmentin prescribed by an urgent care on Wednesday. He does not feel as if it is helping her symptoms. Continues to have facial pressure with nasal congestion. States she has been taking an [id number] sinus congestion pill she buys from the [employer]. She has also been using Flonase. She denies any neck pain. No visual changes. Admits to nausea without vomiting area no chest pain. No shortness of breath. Admits to chills with no recorded fevers. Has a mild nonproductive cough. No other alleviating, precipitating or modifying factors - Related Data Home Medications Medication Instructions Recorded Confirmed Omeprazole 20 mg PO BID 02/07/20 05/06/22 Previous Rx's Medication Instructions Recorded [place] Carbonate 150 mg PO BID 30 Days #60 cap 05/11/22 Loratadine [Claritin] 10 mg PO DAILY 30 Days #30 tab 05/11/22 Lurasidone [Latuda] 120 mg PO 1800 30 Days #30 tab 05/11/22 Nicotine 14Mg/24Hr Patch [Habitrol] 1 patch TRANSDERM DAILY 14 Days 05/11/22 #14 patch Venlafaxine HCl ER [Effexor XR] 225 mg PO DAILY 30 Days #90 cap 05/11/22 clonazePAM [KlonoPIN] 2 mg PO BID 14 Days #0 tab 05/11/22 lamoTRIgine [LaMICtal] 200 mg PO BID 30 Days #120 tab 05/11/22 Pseudoephedrine 12Hr [Sudafed 12Hr] 120 mg PO Q12H #20 tab 02/26/23 predniSONE [Deltasone] 20 mg PO BID #10 tab 02/26/23 Allergies Allergy/AdvReac Type Severity Reaction Status Date / Time amoxicillin [Amoxicillin] AdvReac Abdominal Verified 02/26/23 03:19 Pain/ heartburn steroids AdvReac makes Uncoded 02/26/23 03:19 depression and anxiety worse Review of Systems ROS Statement: Those systems with pertinent positive or pertinent negative responses have been documented in the HPI. ROS Other: All systems not noted in ROS Statement are negative. Past Medical History Past Medical History: GERD/Reflux, Memory Impairment Additional Past Medical History / Comment(s): Chronic laryngitis, short and fpc memory problems., states some difficulty swallowing . History of Any Multi-Drug Resistant Organisms: Other MDRO Past Surgical History: Cholecystectomy, Hysterectomy Past Anesthesia/Blood Transfusion Reactions: No Reported Reaction Past Psychological History: Anxiety, Bipolar, Depression, Panic Disorder Smoking Status: Current every day smoker Past Alcohol Use History: None Reported Past Drug Use History: None Reported - Past Family History Mother Family Medical History: No Reported History General Exam Limitations: no limitations General appearance: alert, in no apparent distress Head exam: Present: atraumatic, normocephalic, normal inspection Eye exam: Present: normal appearance, PERRL, EOMI. Absent: scleral icterus, conjunctival injection, periorbital swelling ENT exam: Present: mucous membranes moist, other (enlarged turbinates bilaterally. sinus pressure to palpation) Neck exam: Present: normal inspection. Absent: tenderness, meningismus, lymphadenopathy Respiratory exam: Present: normal lung sounds bilaterally. Absent: respiratory distress, wheezes, rales, rhonchi, stridor Cardiovascular Exam: Present: regular rate, normal rhythm, normal heart sounds. Absent: systolic murmur, diastolic murmur, rubs, gallop, clicks GI/Abdominal exam: Present: soft, normal bowel sounds. Absent: distended, tenderness, guarding, rebound, rigid Extremities exam: Present: normal inspection, full ROM, normal capillary refill. Absent: tenderness, pedal edema, joint swelling, calf tenderness Back exam: Present: normal inspection Neurological exam: Present: alert, oriented X3, CN II-XII intact Psychiatric exam: Present: normal affect, normal mood Skin exam: Present: warm, dry, intact, normal color. Absent: rash Course Vital Signs 02/26/23 02/26/23 02/26/23 03:19 04:22 05:41 Temperature 99.2 F 98.4 F Pulse Rate 94 85 Respiratory 18 17 Rate Blood Pressure 166/88 142/107 O2 Sat by Pulse 98 99 Oximetry 02/26/23 05:53 Temperature Pulse Rate 78 Respiratory 18 Rate Blood Pressure 148/98 O2 Sat by Pulse 98 Oximetry Medical Decision Making - Medical Decision Making Was pt. sent in by a medical professional or institution ([facility], [facility] [employer], urgent care, hospital, or residential...) When possible be specific @ -No Did you speak to anyone other than the patient for history (EMS, parent, family, police, friend...)? What history was obtained from this source @ -No Did you review nursing and triage notes (agree or disagree)? Why? @ -I reviewed and agree with nursing and triage notes Were old charts reviewed (outside hosp., previous admission, EMS record, old EKG, old radiological studies, urgent care reports/EKG's, residential records)? Report findings @ -No old charts were reviewed Differential Diagnosis (chest pain, altered mental status, abdominal pain women, abdominal pain men, vaginal bleeding, weakness, fever, dyspnea, syncope, headache, dizziness, GI bleed, back pain, seizure, CVA, palpatations, mental health, musculoskeletal)? @ -Acute sinusitis, chronic sinusitis, ALLERGIC rhinitis, Covid, influenza EKG interpreted by me (3pts min.). @ -Not done X-rays interpreted by me (1pt min.). @ -None done CT interpreted by me (1pt min.). @ -None done U/S interpreted by me (1pt. min.). @ -None done What testing was considered but not performed or refused? (CT, X-rays, U/S, labs)? Why? @ -None What meds were considered but not given or refused? Why? @ -None Did you discuss the management of the patient with other professionals (professionals i.e. [facility], [employer], lab, RT, psych nurse, dialysis social worker, technical aid, teacher, loan service officer, casework manager)? Give summary @ -No Was smoking cessation discussed for >3mins.? @ -No Was critical care preformed (if so, how long)? @ -No Were there social determinants of health that impacted care today? How? (Homelessness, low income, unemployed, alcoholism, drug addiction, transportation, low edu. Level, literacy, decrease access to med. care, fci, rehab)? @ -No Was there de-escalation of care discussed even if they declined (Discuss DNR or withdrawal of care, Hospice)? DNR status @ -No What co-morbidities impacted this encounter? (DM, HTN, Smoking, COPD, CAD, Cancer, CVA, ARF, Chemo, Hep., AIDS, mental health diagnosis, sleep apnea, morbid obesity)? @ -None Was patient admitted / discharged? Hospital course, mention meds given and route, prescriptions, significant lab abnormalities, going to OR and other pertinent info. @ -Upon arrival patient was placed into room 15. A thorough history and physical exam was performed. Patient is swabbed for Covid, influenza and RSV all of which are negative. Laboratory studies are conducted and revealed a mild leukocytosis. Results are discussed with the patient. She will be discharged home and instructed to follow-up with her primary care doctor. I will place her on steroids and Sudafed. Instructed to take as directed. Return for any new or worsening symptoms. Patient discharged in stable condition Undiagnosed new problem with uncertain prognosis? @ -Yes Drug Therapy requiring intensive monitoring for toxicity (Heparin, Nitro, Insulin, Cardizem)? @ -No Were any procedures done? @ -No Diagnosis/symptom? @ -Acute cephalgia, subacute sinusitis Acute, or Chronic, or Acute on Chronic? @ -subacute Uncomplicated (without systemic symptoms) or Complicated (systemic symptoms)? @ -Uncomplicated Side effects of treatment? @ -No Exacerbation, Progression, or Severe Exacerbation? @ -No Poses a threat to life or bodily function? How? (Chest pain, [place], [place], pneumonia, PE, COPD, DKA, ARF, appy, cholecystitis, CVA, Diverticulitis, Homicidal, Suicidal, threat to staff... and all critical care pts) @ -No - Lab Data Result diagrams: 02/26/23 05:37 02/26/23 05:37 Lab Results 02/26/23 02/26/23 02/26/23 Range/Units 03:50 05:37 05:37 WBC 14.2 H (3.8-10.6) k/uL RBC 4.77 (3.80-5.40) m/uL Hgb 15.7 (11.4-16.0) gm/dL Hct 47.3 H (34.0-46.0) % MCV 99.1 (80.0-100.0) fL MCH 32.8 (25.0-35.0) pg MCHC 33.1 (31.0-37.0) g/dL RDW 13.9 (11.5-15.5) % Plt Count 355 (150-450) k/uL MPV 7.3 Neutrophils % 75 % Lymphocytes % 19 % Monocytes % 4 % Eosinophils % 2 % Basophils % 1 % Neutrophils # 10.6 H (1.3-7.7) k/uL Lymphocytes # 2.6 (1.0-4.8) k/uL Monocytes # 0.5 (0-1.0) k/uL Eosinophils # 0.3 (0-0.7) k/uL Basophils # 0.1 (0-0.2) k/uL Sodium (137-145) mmol/L Potassium (3.5-5.1) mmol/L Chloride (98-107) mmol/L Carbon Dioxide (22-30) mmol/L Anion Gap mmol/L BUN (7-17) mg/dL Creatinine (0.52-1.04) mg/dL Est GFR (CKD-EPI)AfAm (>60 ml/min/1.73 sqM) Est GFR (CKD-EPI)NonAf (>60 ml/min/1.73 sqM) Glucose (74-99) mg/dL Calcium (8.4-10.2) mg/dL Total Bilirubin (0.2-1.3) mg/dL AST (14-36) U/L ALT (4-34) U/L Alkaline Phosphatase (38-126) U/L Total Protein (6.3-8.2) g/dL Albumin (3.5-5.0) g/dL Heterophile Antibody Negative (Negative) Influenza Type A (PCR) Not Detected (Not Detectd) Influenza Type B (PCR) Not Detected (Not Detectd) RSV (PCR) Not Detected (Not Detectd) SARS-CoV-2 (PCR) Not Detected (Not Detectd) 02/26/23 Range/Units 05:37 WBC (3.8-10.6) k/uL RBC (3.80-5.40) m/uL Hgb (11.4-16.0) gm/dL Hct (34.0-46.0) % MCV (80.0-100.0) fL MCH (25.0-35.0) pg MCHC (31.0-37.0) g/dL RDW (11.5-15.5) % Plt Count (150-450) k/uL MPV Neutrophils % % Lymphocytes % % Monocytes % % Eosinophils % % Basophils % % Neutrophils # (1.3-7.7) k/uL Lymphocytes # (1.0-4.8) k/uL Monocytes # (0-1.0) k/uL Eosinophils # (0-0.7) k/uL Basophils # (0-0.2) k/uL Sodium 137 (137-145) mmol/L Potassium 4.9 (3.5-5.1) mmol/L Chloride 102 (98-107) mmol/L Carbon Dioxide 23 (22-30) mmol/L Anion Gap 12 mmol/L BUN 10 (7-17) mg/dL Creatinine 0.66 (0.52-1.04) mg/dL Est GFR (CKD-EPI)AfAm >90 (>60 ml/min/1.73 sqM) Est GFR (CKD-EPI)NonAf >90 (>60 ml/min/1.73 sqM) Glucose 159 H (74-99) mg/dL Calcium 9.6 (8.4-10.2) mg/dL Total Bilirubin 0.3 (0.2-1.3) mg/dL AST 21 (14-36) U/L ALT 21 (4-34) U/L Alkaline Phosphatase 104 (38-126) U/L Total Protein 7.0 (6.3-8.2) g/dL Albumin 4.1 (3.5-5.0) g/dL Heterophile Antibody (Negative) Influenza Type A (PCR) (Not Detectd) Influenza Type B (PCR) (Not Detectd) RSV (PCR) (Not Detectd) SARS-CoV-2 (PCR) (Not Detectd) Disposition Clinical Impression: Chronic sinusitis, Cephalgia Disposition: HOME SELF-CARE Condition: Stable Instructions (If sedation given, give patient instructions): Sinusitis (ED) Additional Instructions: Please take the steroids (starting Wednesday) and Sudafed as directed. Follow up with your primary care doctor and return for any new or worsening symptoms Prescriptions: predniSONE [Deltasone] 20 mg PO BID #10 tab Pseudoephedrine 12Hr [Sudafed 12Hr] 120 mg PO Q12H #20 tab Is patient prescribed a controlled substance at d/c from ED?: No Referrals: Mikael Mai DO [Primary Care Provider] - 1-2 days Jay Parnell DO [Doctor of Osteopathic Medicine] - 1-2 days Time of Disposition: 05:31
[2023-02-26 05:49] LABS: Basophils # (A) 0.1 k/uL (0-0.2); Basophils % (A) 1 %; Eosinophils # (A) 0.3 k/uL (0-0.7); Eosinophils % (A) 2 %; HCT 47.3 % (34.0-46.0); HGB 15.7 gm/dL (11.4-16.0); Lymphocytes # (A) 2.6 k/uL (1.0-4.8); Lymphocytes % (A) 19 %; MCH 32.8 pg (25.0-35.0); MCHC 33.1 g/dL (31.0-37.0); MCV 99.1 fL (80.0-100.0); Mean Platelet Volume 7.3; Monocytes # (A) 0.5 k/uL (0-1.0); Monocytes % (A) 4 %; Neutrophils # (A) 10.6 k/uL (1.3-7.7); Neutrophils % (A) 75 %; Platelet Count 355 k/uL (150-450); RBC 4.77 m/uL (3.80-5.40); RDW 13.9 % (11.5-15.5); WBC 14.2 k/uL (3.8-10.6)
[2023-02-26 05:56] VITALS: BP 148/98; PULSE 78
[2023-02-26 05:56] LABS: ALT 21 U/L (4-34); AST 21 U/L (14-36); African American GFR (CKD) >90 (>60 ml/min/1.73 sqM); Albumin 4.1 g/dL (3.5-5.0); Alkaline Phosphatase 104 U/L (38-126); Anion Gap 12 mmol/L; Blood Urea Nitrogen 10 mg/dL (7-17); Calcium 9.6 mg/dL (8.4-10.2); Carbon Dioxide 23 mmol/L (22-30); Chloride 102 mmol/L (98-107); Glucose 159 mg/dL (74-99); Non-African American GFR(CKD) >90 (>60 ml/min/1.73 sqM); Potassium 4.9 mmol/L (3.5-5.1); Sodium 137 mmol/L (137-145); Total Bilirubin 0.3 mg/dL (0.2-1.3)
== END 2023-02-26 05:53 | disposition home or self-care (01) ==
LOC: EC 03:11
DX: J32.9 Chronic sinusitis, unspecified (principal); K21.9 Gastro-esophageal reflux disease without esophagitis; F17.200 Nicotine dependence, unspecified, uncomplicated; Z86.59 Personal history of other mental and behavioral disorders; Z88.0 Allergy status to penicillin; Z88.8 Allergy status to other drugs, medicaments and biological substances; Z20.822 Contact with and (suspected) exposure to COVID-19; Z79.899 Other long term (current) drug therapy
CPT/HCPCS: 99283 ×2; 36415; 80053; 85025; 86308; 87636; J7512

== ENCOUNTER 2023-03-05 23:44 | Emergency (ER) | payer MEDICARE, OTHER ==
[2023-03-05 23:57] VITALS: PULSE 102; RESP 18; TEMP 98.8
--- NOTE | 2023-03-06 00:23 | ED ---
ENT HPI - General Chief complaint: ENT Stated complaint: Sinus Infection Time Seen by Provider: 03/05/23 23:51 Source: patient Mode of arrival: ambulatory Limitations: no limitations - History of Present Illness Initial comments: 7-year-old female presenting to the ED with a chief complaint of sinusitis. Patient has history of chronic sinusitis. Was here previously on 02/26/23. At that time was already given a prescription for Augmentin and was advised to continue this. Discharged home with additional prescriptions for prednisone and Sudafed. Also was given a referral to see ENT. Despite these medications, patient reports ongoing symptoms. Does not report any worsening of symptoms just continuance of them. Patient states that she did not think to call ENT. Denies fevers. No chest pain or shortness of breath. No other complaints. - Related Data Home Medications Medication Instructions Recorded Confirmed Omeprazole 20 mg PO BID 02/07/20 05/06/22 Previous Rx's Medication Instructions Recorded [place] Carbonate 150 mg PO BID 30 Days #60 cap 05/11/22 Loratadine [Claritin] 10 mg PO DAILY 30 Days #30 tab 05/11/22 Lurasidone [Latuda] 120 mg PO 1800 30 Days #30 tab 05/11/22 Nicotine 14Mg/24Hr Patch [Habitrol] 1 patch TRANSDERM DAILY 14 Days 05/11/22 #14 patch Venlafaxine HCl ER [Effexor XR] 225 mg PO DAILY 30 Days #90 cap 05/11/22 clonazePAM [KlonoPIN] 2 mg PO BID 14 Days #0 tab 05/11/22 lamoTRIgine [LaMICtal] 200 mg PO BID 30 Days #120 tab 05/11/22 Pseudoephedrine 12Hr [Sudafed 12Hr] 120 mg PO Q12H #20 tab 02/26/23 predniSONE [Deltasone] 20 mg PO BID #10 tab 02/26/23 Acetaminophen-Codeine 300-30mg 1 tab PO Q6H PRN #12 tablet 03/06/23 [Tylenol #3] Doxycycline [Vibramycin] 100 mg PO BID 7 Days #14 capsule 03/06/23 Allergies Allergy/AdvReac Type Severity Reaction Status Date / Time amoxicillin [Amoxicillin] AdvReac Abdominal Verified 02/26/23 03:19 Pain/ heartburn steroids AdvReac makes Uncoded 02/26/23 03:19 depression and anxiety worse Review of Systems ROS Statement: Those systems with pertinent positive or pertinent negative responses have been documented in the HPI. ROS Other: All systems not noted in ROS Statement are negative. 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 History of Any Multi-Drug Resistant Organisms: Other MDRO Past Surgical History: Cholecystectomy, Hysterectomy Past Anesthesia/Blood Transfusion Reactions: No Reported Reaction Past Psychological History: Anxiety, Bipolar, Depression, Panic Disorder Smoking Status: Current every day smoker Past Alcohol Use History: None Reported Past Drug Use History: None Reported - Past Family History Mother Family Medical History: No Reported History General Exam Limitations: no limitations General appearance: alert, in no apparent distress ENT exam: Present: other (Unable to transilluminate maxillary sinuses bilaterally. Tenderness to palpation of maxillary and frontal sinus.) Neck exam: Present: normal inspection Respiratory exam: Present: normal lung sounds bilaterally Cardiovascular Exam: Present: regular rate, normal rhythm GI/Abdominal exam: Present: soft Neurological exam: Present: alert, oriented X3 Skin exam: Present: warm, dry Course Vital Signs 03/05/23 23:47 Temperature 98.8 F Pulse Rate 102 H Respiratory 18 Rate Blood Pressure 153/82 O2 Sat by Pulse 100 Oximetry Medical Decision Making - Medical Decision Making Was pt. sent in by a medical professional or institution (DAYN Mckeon, PREFORMING MACHINE OPERATOR, urgent care, hospital, or custodial...) When possible be specific @ -No Did you speak to anyone other than the patient for history (EMS, parent, family, police, friend...)? What history was obtained from this source @ -No Did you review nursing and triage notes (agree or disagree)? Why? @ -I reviewed and agree with nursing and triage notes Were old charts reviewed (outside hosp., previous admission, EMS record, old EKG, old radiological studies, urgent care reports/EKG's, custodial records)? Report findings @ -Prior visit reviewed. For further details please see HPI. Differential Diagnosis (chest pain, altered mental status, abdominal pain women, abdominal pain men, vaginal bleeding, weakness, fever, dyspnea, syncope, headache, dizziness, GI bleed, back pain, seizure, CVA, palpatations, mental health, musculoskeletal)? @ -Differential Fever: Pneumonia, viral URI, endocarditis, myocarditis, pericarditis, otitis, sinusitis, peritonsillar Abscess, retropharyngeal Abscess, epiglottitis, peritonitis, appendicitis, Lacy cystitis, diverticulitis, hepatitis, colitis, UTI, PID, TOA, pyelonephritis, prostatitis, epididymitis, meningitis, encephalitis, pulmonary embolism, CVA, thyroid storm, pancreatitis, adrenal crisis, cavernous sinus thrombosis, this is not meant to be an all-inclusive list. EKG interpreted by me (3pts min.). @ -None X-rays interpreted by me (1pt min.). @ -None done CT interpreted by me (1pt min.). @ -None done U/S interpreted by me (1pt. min.). @ -None done What testing was considered but not performed or refused? (CT, X-rays, U/S, labs)? Why? @ -None What meds were considered but not given or refused? Why? @ -None Did you discuss the management of the patient with other professionals (professionals i.e. , PA, PREFORMING MACHINE OPERATOR, lab, RT, psych nurse, administrator social welfare, grinding wheel facer, teacher, immigration officer, business case analyst)? Give summary @ -No Was smoking cessation discussed for >3mins.? @ -No Was critical care preformed (if so, how long)? @ -No Were there social determinants of health that impacted care today? How? (Homelessness, low income, unemployed, alcoholism, drug addiction, transportation, low edu. Level, literacy, decrease access to med. care, [facility], rehab)? @ -No Was there de-escalation of care discussed even if they declined (Discuss DNR or withdrawal of care, Hospice)? DNR status @ -No What co-morbidities impacted this encounter? (DM, HTN, Smoking, COPD, CAD, Cancer, CVA, ARF, Chemo, Hep., AIDS, mental health diagnosis, sleep apnea, morbid obesity)? @ -None Was patient admitted / discharged? Hospital course, mention meds given and route, prescriptions, significant lab abnormalities, going to OR and other pertinent info. @ -Discharge 47-year-old female with history of chronic sinusitis presenting to the ED with complaints of continued pain and pressure. Does not report worsening of her symptoms. At this time vital signs stable, afebrile. Patient provided prescription for doxycycline and advised to follow up with ENT. Also provided a short prescription for Tylenol 3's. Discharged home in stable condition. Discussed return precautions with patient verbalizes agreement. Undiagnosed new problem with uncertain prognosis? @ -No Drug Therapy requiring intensive monitoring for toxicity (Heparin, Nitro, Insulin, Cardizem)? @ -No Were any procedures done? @ -No Diagnosis/symptom? @ -Sinusitis Acute, or Chronic, or Acute on Chronic? @ -Acute on chronic Uncomplicated (without systemic symptoms) or Complicated (systemic symptoms)? @ -Uncomplicated Side effects of treatment? @ -No Exacerbation, Progression, or Severe Exacerbation? @ -No Poses a threat to life or bodily function? How? (Chest pain, [place], [place], pneumonia, PE, COPD, DKA, ARF, appy, cholecystitis, CVA, Diverticulitis, Homicidal, Suicidal, threat to staff... and all critical care pts) @ -No Disposition Clinical Impression: Sinusitis Disposition: HOME SELF-CARE Condition: Good Additional Instructions: Please return to the Emergency Department if symptoms worsen or any other concerns. Follow up with ENT. Prescriptions: Acetaminophen-Codeine 300-30mg [Tylenol #3] 1 tab PO Q6H PRN #12 tablet PRN Reason: pain Doxycycline [Vibramycin] 100 mg PO BID 7 Days #14 capsule Is patient prescribed a controlled substance at d/c from ED?: Yes When asked, does pt state using other controlled substances?: No If prescribed controlled substance>3 days was MAPS reviewed?: Prescribed <3 Days Referrals: Mikael Mai DO [Primary Care Provider] - 1-2 days Time of Disposition: 00:28
[2023-03-06] MEDS ORDERED: ACET/COD 300 MG/30 MG STARTER PACK 6 TAB BTL PO STA (00:28)
[2023-03-06 01:10] VITALS: BP 132/91
== END 2023-03-06 01:06 | disposition home or self-care (01) ==
LOC: EC 23:44
DX: J32.9 Chronic sinusitis, unspecified (principal); K21.9 Gastro-esophageal reflux disease without esophagitis; F17.200 Nicotine dependence, unspecified, uncomplicated; Z86.59 Personal history of other mental and behavioral disorders; Z79.899 Other long term (current) drug therapy; Z88.0 Allergy status to penicillin; Z88.8 Allergy status to other drugs, medicaments and biological substances
CPT/HCPCS: 99283

== ENCOUNTER → 2023-06-08 | Outpatient (CLI) | payer MEDICARE, OTHER ==
--- NOTE | 2023-06-08 18:11 | CT ---
EXAMINATION TYPE: CT sinus wo con CT DLP: 622.30 mGycm, Automated exposure control for dose reduction was used. DATE OF EXAM: 06/08/2023 5:57 PM COMPARISON: 01/16/2021. CLINICAL INDICATION:Female, 47 years old with history of J32.9 Chronic Sinusitis; , Chronic Sinusitis TECHNIQUE: Multiple thin axial images were obtained through the paranasal sinuses without the use of IV contrast. Additional coronal and sagittal reformatted images were submitted for evaluation. Contrast used: none Oral contrast used: none FINDINGS: Frontal sinuses: Normally developed and aerated. Frontal Recess: Clear Maxillary Sinuses: Normally developed and aerated. Maxillary Infundibula(OMC): Clear, No [place] cells identified. Ethmoid sinuses: Normally developed and aerated. Ethmoidal notch: Protected and abutting the lateral lamina. Sphenoid sinuses: Normally developed and aerated. There is sellar sphenoid sinus pneumatization witho ut evidence of dehiscence. No dehiscence of carotid canal. No evidence of optic nerve dehiscence wit hin the sphenoid sinus. No evidence of [place] cells. Sphenoethmoidal recesses: Clear. Nasal septum: Within normal limits.. Nasal Turbinates: Within normal limits. Mastoid air cells & middle ears: The air cells are clear. The middle ears are grossly unremarkable. Modified Soft tissues & Brain: Partially seen without gross abnormality. Globes are intact. Other: Cribriform plate demonstrates symmetric Keros classification type 3 cribriform plate. No evidence of bony dehiscence of skull base. Lamina papyracea is intact without evidence of remote orbital fracture or orbital prolapse into the e thmoid sinus. IMPRESSION: 1. No significant mucosal sinus disease. 2. The ostiomeatal units, frontonasal and sphenoethmoidal recesses are clear.
== END | disposition home or self-care (01) ==
LOC: RADCTMAIN 17:39
PROVIDERS: ATTEND Otolaryngology
DX: J32.9 Chronic sinusitis, unspecified (principal)
CPT/HCPCS: 70486

== ENCOUNTER 2023-06-14 09:32 | Emergency (ER) | payer MEDICARE, OTHER ==
[2023-06-14 09:49] VITALS: BP 120/82; PULSE 107; RESP 18; TEMP 97.7
--- NOTE | 2023-06-14 09:59 | ED ---
General Adult HPI - General Chief complaint: ENT Stated complaint: Sore Throat Time Seen by Provider: 06/14/23 09:40 Source: patient, RN notes reviewed, old records reviewed Mode of arrival: ambulatory Limitations: no limitations - History of Present Illness Initial comments: This is a 47-year-old female who presents to the emergency department states she has had a sore throat for 2 months. Patient states she is following up with a ENT. Patient states she is him had a CAT scan done and she has a follow-up appointment on Wednesday. Patient states she has had antibiotics and steroids in the past and they do not work. Patient states her throat has not changed and she finds it difficult to breathe when she has her mouth open but she is able to breathe just normally with her mouth closed and breathes through her nose. Patient denies any chest pain or back pain. Patient [place] any fever or chills. - Related Data Home Medications Medication Instructions Recorded Confirmed Omeprazole 20 mg PO BID 02/07/20 05/06/22 Previous Rx's Medication Instructions Recorded [place] Carbonate 150 mg PO BID 30 Days #60 cap 05/11/22 Loratadine [Claritin] 10 mg PO DAILY 30 Days #30 tab 05/11/22 Lurasidone [Latuda] 120 mg PO 1800 30 Days #30 tab 05/11/22 Nicotine 14Mg/24Hr Patch [Habitrol] 1 patch TRANSDERM DAILY 14 Days 05/11/22 #14 patch Venlafaxine HCl ER [Effexor XR] 225 mg PO DAILY 30 Days #90 cap 05/11/22 clonazePAM [KlonoPIN] 2 mg PO BID 14 Days #0 tab 05/11/22 lamoTRIgine [LaMICtal] 200 mg PO BID 30 Days #120 tab 05/11/22 Pseudoephedrine 12Hr [Sudafed 12Hr] 120 mg PO Q12H #20 tab 02/26/23 predniSONE [Deltasone] 20 mg PO BID #10 tab 02/26/23 Acetaminophen-Codeine 300-30mg 1 tab PO Q6H PRN #12 tablet 03/06/23 [Tylenol #3] Doxycycline [Vibramycin] 100 mg PO BID 7 Days #14 capsule 03/06/23 Allergies Allergy/AdvReac Type Severity Reaction Status Date / Time amoxicillin [Amoxicillin] AdvReac Abdominal Verified 06/14/23 09:37 Pain/ heartburn steroids AdvReac makes Uncoded 02/26/23 03:19 depression and anxiety worse Review of Systems ROS Statement: Those systems with pertinent positive or pertinent negative responses have been documented in the HPI. ROS Other: All systems not noted in ROS Statement are negative. 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 History of Any Multi-Drug Resistant Organisms: Other MDRO Past Surgical History: Cholecystectomy, Hysterectomy Past Anesthesia/Blood Transfusion Reactions: No Reported Reaction Past Psychological History: Anxiety, Bipolar, Depression, Panic Disorder Smoking Status: Current every day smoker Past Alcohol Use History: None Reported Past Drug Use History: None Reported - Past Family History Mother Family Medical History: No Reported History General Exam - General Exam Comments Initial Comments: GENERAL Patient is well-developed and well-nourished. Patient is in mild distress. EYES Patient's pupils are equal and round. Extraocular motion is intact ENT Patient's throat has no swelling there is no erythema. On examination of her neck there is no lymphadenopathy or masses noted. SKIN Unremarkable NEURO The patient is alert and oriented -3 PYSCH Patient has normal interpersonal interactions. MUSCULOSKELETAL All 4 extremities have full range of motion. Limitations: no limitations Course Vital Signs 06/14/23 06/14/23 09:33 09:51 Temperature 97.7 F Pulse Rate 107 H Respiratory 18 18 Rate Blood Pressure 120/82 O2 Sat by Pulse 100 Oximetry Medical Decision Making - Medical Decision Making Was pt. sent in by a medical professional or institution (, PA, STACKER TENDER, urgent care, hospital, or custodial...) When possible be specific @ -No Did you speak to anyone other than the patient for history (EMS, parent, family, police, friend...)? What history was obtained from this source @ -No Did you review nursing and triage notes (agree or disagree)? Why? @ -I reviewed and agree with nursing and triage notes Were old charts reviewed (outside hosp., previous admission, EMS record, old EKG, old radiological studies, urgent care reports/EKG's, custodial records)? Report findings @ -No old charts were reviewed Differential Diagnosis (chest pain, altered mental status, abdominal pain women, abdominal pain men, vaginal bleeding, weakness, fever, dyspnea, syncope, headache, dizziness, GI bleed, back pain, seizure, CVA, palpatations, mental health, musculoskeletal)? @ -Not applicable EKG interpreted by me (3pts min.). @ -As above X-rays interpreted by me (1pt min.). @ -None done CT interpreted by me (1pt min.). @ -None done U/S interpreted by me (1pt. min.). @ -None done What testing was considered but not performed or refused? (CT, X-rays, U/S, labs)? Why? @ -None What meds were considered but not given or refused? Why? @ -None Did you discuss the management of the patient with other professionals (professionals i.e. , PA, STACKER TENDER, lab, RT, psych nurse, social worker masters, piece dyer, teacher, annual giving officer, showcase trimmer)? Give summary @ -No Was smoking cessation discussed for >3mins.? @ -No Was critical care preformed (if so, how long)? @ -No Were there social determinants of health that impacted care today? How? (Homelessness, low income, unemployed, alcoholism, drug addiction, transportation, low edu. Level, literacy, decrease access to med. care, skilled nursing, rehab)? @ -No Was there de-escalation of care discussed even if they declined (Discuss DNR or withdrawal of care, Hospice)? DNR status @ -No What co-morbidities impacted this encounter? (DM, HTN, Smoking, COPD, CAD, Cancer, CVA, ARF, Chemo, Hep., AIDS, mental health diagnosis, sleep apnea, morbid obesity)? @ -None Was patient admitted / discharged? Hospital course, mention meds given and route, prescriptions, significant lab abnormalities, going to OR and other pertinent info. @ -Patient received a Toradol shot in the emergency department for her discom fort. Patient was able to breathe through her nose without any pain whatsoever. Patient was in no distress. Patient's CAT scan was reviewed by myself and showed no acute abnormality. Patient will follow-up with her ENT on Wednesday. Undiagnosed new problem with uncertain prognosis? @ -No Drug Therapy requiring intensive monitoring for toxicity (Heparin, Nitro, Insulin, Cardizem)? @ -No Were any procedures done? @ -No Diagnosis/symptom? @ -Chronic sore throat Acute, or Chronic, or Acute on Chronic? @ -Chronic Uncomplicated (without systemic symptoms) or Complicated (systemic symptoms)? @ -Uncomplicated Side effects of treatment? @ -No Exacerbation, Progression, or Severe Exacerbation? @ -No Poses a threat to life or bodily function? How? (Chest pain, [place], [place], pneumonia, PE, COPD, DKA, ARF, appy, cholecystitis, CVA, Diverticulitis, Homicidal, Suicidal, threat to staff... and all critical care pts) @ -No Disposition Clinical Impression: Chronic sore throat Disposition: HOME SELF-CARE Condition: Good Instructions (If sedation given, give patient instructions): Strep Throat (ED) Is patient prescribed a controlled substance at d/c from ED?: No Referrals: Mikael Mai DO [Primary Care Provider] - 1-2 days Time of Disposition: 09:59
[2023-06-14] MEDS: KETOROLAC 15 MG/ML 1 ML VIAL IM STA (10:02)
== END 2023-06-14 10:07 | disposition home or self-care (01) ==
LOC: EC 09:32
DX: J31.2 Chronic pharyngitis (principal); F17.200 Nicotine dependence, unspecified, uncomplicated; Z88.0 Allergy status to penicillin; Z88.8 Allergy status to other drugs, medicaments and biological substances
CPT/HCPCS: 96372; 99283

== ENCOUNTER 2023-08-15 20:03 | Emergency (ER) | payer MEDICARE, OTHER ==
[2023-08-15 20:43] VITALS: BP 149/84; PULSE 104; RESP 18; TEMP 98
--- NOTE | 2023-08-15 20:55 | ED ---
Upper Extremity HPI - General Chief Complaint: Extremity Injury, Upper Stated Complaint: left finger pain Time Seen by Provider: 08/15/23 20:23 Source: patient, RN notes reviewed Mode of arrival: ambulatory Limitations: no limitations - History of Present Illness Initial Comments: 47-year-old female with no significant past medical history presenting with left fourth digit pain x 2 weeks. States she had her baseball glove on her left hand and was playing catch when she felt immediate pain and catching a ball 2 weeks ago. Patient reports left fourth digit has become increasingly red, painful, and swollen since the injury. Denies fever or chills. - Related Data Home Medications Medication Instructions Recorded Confirmed Omeprazole 20 mg PO BID 02/07/20 05/06/22 Previous Rx's Medication Instructions Recorded [place] Carbonate 150 mg PO BID 30 Days #60 cap 05/11/22 Loratadine [Claritin] 10 mg PO DAILY 30 Days #30 tab 05/11/22 Lurasidone [Latuda] 120 mg PO 1800 30 Days #30 tab 05/11/22 Nicotine 14Mg/24Hr Patch [Habitrol] 1 patch TRANSDERM DAILY 14 Days 05/11/22 #14 patch Venlafaxine HCl ER [Effexor XR] 225 mg PO DAILY 30 Days #90 cap 05/11/22 clonazePAM [KlonoPIN] 2 mg PO BID 14 Days #0 tab 05/11/22 lamoTRIgine [LaMICtal] 200 mg PO BID 30 Days #120 tab 05/11/22 Pseudoephedrine 12Hr [Sudafed 12Hr] 120 mg PO Q12H #20 tab 02/26/23 predniSONE [Deltasone] 20 mg PO BID #10 tab 02/26/23 Acetaminophen-Codeine 300-30mg 1 tab PO Q6H PRN #12 tablet 03/06/23 [Tylenol #3] Doxycycline [Vibramycin] 100 mg PO BID 7 Days #14 capsule 03/06/23 Allergies Allergy/AdvReac Type Severity Reaction Status Date / Time No Known Allergies Allergy Verified 08/15/23 20:08 Review of Systems ROS Statement: Those systems with pertinent positive or pertinent negative responses have been documented in the HPI. ROS Other: All systems not noted in ROS Statement are negative. Past Medical History Past Medical History: GERD/Reflux, Memory Impairment Additional Past Medical History / Comment(s): Chronic laryngitis, short and fdc memory problems., states some difficulty swallowing . History of Any Multi-Drug Resistant Organisms: Other MDRO Past Surgical History: Cholecystectomy, Hysterectomy Past Anesthesia/Blood Transfusion Reactions: No Reported Reaction Past Psychological History: Anxiety, Bipolar, Depression, Panic Disorder Smoking Status: Current every day smoker Past Alcohol Use History: None Reported Past Drug Use History: None Reported - Past Family History Mother Family Medical History: No Reported History General Exam Limitations: no limitations General appearance: alert, in no apparent distress Head exam: Present: atraumatic, normocephalic, normal inspection Eye exam: Present: normal appearance, PERRL, EOMI. Absent: scleral icterus, conjunctival injection, periorbital swelling Respiratory exam: Present: normal lung sounds bilaterally. Absent: respiratory distress, wheezes, rales, rhonchi, stridor Cardiovascular Exam: Present: regular rate, normal rhythm, normal heart sounds. Absent: systolic murmur, diastolic murmur, rubs, gallop, clicks Left Forearm Wrist exam: Present: normal inspection, full ROM. Absent: tenderness, swelling Hand Wrist exam: Present: tenderness, swelling, erythema. Absent: normal inspection (Left fourth digit: Erythema, edema, and tenderness on distal aspect of finger. Limited range of motion of DIP joint due to pain and swelling. No fluctuant mass present or drainage. Cap refill less than 2 seconds. Sensation of distal finger intact. Radial pulses intact), deformity Course Vital Signs 08/15/23 20:04 Temperature 98.0 F Pulse Rate 104 H Respiratory 18 Rate Blood Pressure 149/84 O2 Sat by Pulse 95 Oximetry Medical Decision Making - Medical Decision Making Was pt. sent in by a medical professional or institution (, PA, KEYBOARDING TEACHER, urgent care, hospital, or snf...) When possible be specific @ -No Did you speak to anyone other than the patient for history (EMS, parent, family, police, friend...)? What history was obtained from this source @ -No Did you review nursing and triage notes (agree or disagree)? Why? @ -I reviewed and agree with nursing and triage notes Were old charts reviewed (outside hosp., previous admission, EMS record, old EKG, old radiological studies, urgent care reports/EKG's, snf records)? Report findings @ -No old charts were reviewed Differential Diagnosis (chest pain, altered mental status, abdominal pain women, abdominal pain men, vaginal bleeding, weakness, fever, dyspnea, syncope, headache, dizziness, GI bleed, back pain, seizure, CVA, palpatations, mental health, musculoskeletal)? @ -Differential Musculoskeletal Muscular strain, contusion, ligament sprain, fracture, arthritis, septic art hritis, bursitis, cellulitis, muscle spasm, nerve compression, DVT, arterial occlusion, herpes zoster, electrolyte abnormality, tumor.... This is not meant to be in all inclusive list EKG interpreted by me (3pts min.). @ -None X-rays interpreted by me (1pt min.). @ -X-ray of left hand reveals comminuted fracture of distal tuft ring finger with overlying soft tissue swelling CT interpreted by me (1pt min.). @ -None done U/S interpreted by me (1pt. min.). @ -None done What testing was considered but not performed or refused? (CT, X-rays, U/S, labs)? Why? @ -None What meds were considered but not given or refused? Why? @ -None Did you discuss the management of the patient with other professionals (professionals i.e. , PA, KEYBOARDING TEACHER, lab, RT, psych nurse, social media campaign manager, program administrator, teacher, medical corps officer, home health care case manager)? Give summary @ -No Was smoking cessation discussed for >3mins.? @ -No Was critical care preformed (if so, how long)? @ -No Were there social determinants of health that impacted care today? How? (Homelessness, low income, unemployed, alcoholism, drug addiction, transportation, low edu. Level, literacy, decrease access to med. care, nursing home, rehab)? @ -No Was there de-escalation of care discussed even if they declined (Discuss DNR or withdrawal of care, Hospice)? DNR status @ -No What co-morbidities impacted this encounter? (DM, HTN, Smoking, COPD, CAD, Cancer, CVA, ARF, Chemo, Hep., AIDS, mental health diagnosis, sleep apnea, morbid obesity)? @ -None Was patient admitted / discharged? Hospital course, mention meds given and route, prescriptions, significant lab abnormalities, going to OR and other pertinent info. @ -Patient was discharged. Patient was seen and evaluated for left ring finger injury x 2 weeks ago. Patient caught a softball with a glove and felt immediate pain in left ring finger. Patient is neurovascularly intact. No sign of bacterial infection. X-ray reveals comminuted fracture of distal tuft of ring finger with overlying soft tissue swelling. Finger splint placed. Advised to follow-up with Ortho in 1 to 3 days. Strict return/alarm symptoms discussed with patient in detail and she shows understanding and agrees with plan. Supportive care discussed including ibuprofen/Tylenol for pain and swelling. Patient discharged in stable condition. Case discussed with Dr. Cox Undiagnosed new problem with uncertain prognosis? @ -No Drug Therapy requiring intensive monitoring for toxicity (Heparin, Nitro, Insulin, Cardizem)? @ -No Were any procedures done? @ -No Diagnosis/symptom? @ -Left distal phalanx fracture of fourth digit Acute, or Chronic, or Acute on Chronic? @ -Acute Uncomplicated (without systemic symptoms) or Complicated (systemic symptoms)? @ -Uncomplicated Side effects of treatment? @ -No Exacerbation, Progression, or Severe Exacerbation? @ -No Poses a threat to life or bodily function? How? (Chest pain, [place], [place], pneumonia, PE, COPD, DKA, ARF, appy, cholecystitis, CVA, Diverticulitis, Homicidal, Suicidal, threat to staff... and all critical care pts) @ -No Disposition Clinical Impression: Fracture of distal phalanx of left ring finger Disposition: HOME SELF-CARE Condition: Stable Instructions (If sedation given, give patient instructions): Finger Fracture (ED) Additional Instructions: Please follow-up with Ortho in 1 to 3 days. Please return to the Emergency Department if symptoms worsen or any other concerns. Is patient prescribed a controlled substance at d/c from ED?: No Referrals: Mikael Mai DO [Primary Care Provider] - 1-2 days Bhargav Costa MD [STAFF PHYSICIAN] - 1-2 days Time of Disposition: 22:11
--- NOTE | 2023-08-15 21:47 | XR ---
EXAMINATION TYPE: XR hand complete LT DATE OF EXAM: 08/15/2023 COMPARISON: None HISTORY: Pain fourth digit TECHNIQUE: 3 view left hand FINDINGS: There is a comminuted fracture with lucency through the tuft of the fourth digit. Overlying soft tissue swelling is present. No additional fractures are evident. IMPRESSION: 1. Comminuted fracture distal tuft ring finger with overlying soft tissue swelling.
== END 2023-08-15 22:34 | disposition home or self-care (01) ==
LOC: EC 20:03
DX: S62.635A Displaced fracture of distal phalanx of left ring finger, initial encounter for closed fracture (principal); F17.200 Nicotine dependence, unspecified, uncomplicated; X58.XXXA Exposure to other specified factors, initial encounter; Y93.64 Activity, baseball
CPT/HCPCS: 99283

== ENCOUNTER → 2023-10-25 | Outpatient (CLI) | payer MEDICARE ==
--- NOTE | 2023-11-29 12:57 | XR ---
Site ID [facility] Patient Margie De La Rosa E ID [id number] Age/Gender: 48Y, F Order # N/A Procedure CHEST 2 VIEW Date 10/25/2023 4:57:00 PM EXAMINATION TYPE: XR chest 2V DATE OF EXAM: 11/04/2023 1:28 PM COMPARISON: Chest radiographs from 01/16/2021 TECHNIQUE: XR chest 2V Frontal and lateral views of the chest. CLINICAL INDICATION: Female, 48 year old with history of gastroesophageal reflux; FINDINGS: Lungs/Pleura: There is no evidence of pleural effusion, focal consolidation, or pneumothorax. Pulmonary vascularity: Unremarkable. Heart/mediastinum: Cardiomediastinal silhouette is unremarkable. Musculoskeletal: No acute osseous pathology. IMPRESSION: No acute cardiopulmonary disease/process.
== END | disposition home or self-care (01) ==
LOC: RADXRMAIN 16:50
PROVIDERS: ATTEND Family Medicine
DX: K21.9 Gastro-esophageal reflux disease without esophagitis (principal)
CPT/HCPCS: 71046

== ENCOUNTER 2023-11-15 11:39 | Emergency (ER) | payer MEDICARE ==
[2023-11-15 11:47] VITALS: RESP 16; TEMP 98
--- NOTE | 2023-11-15 12:34 | ED ---
General Adult HPI - General Chief complaint: Urogenital Stated complaint: Urogenital Time Seen by Provider: 11/15/23 12:02 Source: patient Mode of arrival: ambulatory Limitations: no limitations - History of Present Illness Initial comments: Dictation was produced using [email or web address] dictation software. please excuse any grammatical, word or spelling errors. Chief Complaint:- 48year-old female female presents with persistent vaginal symptoms History of Present Illness: Patient is a 48-year-old female presents the emergency department for persistent vaginal symptoms. 3 days ago she was seen at an urgent care where she was diagnosed with BV, yeast. She was prescribed Diflucan, vaginal yeast suppository medications and also Flagyl. States that she completed all those medications. States that she feels like her symptoms not getting any better. She does complain of some dysuria symptoms. She states she had a bed 1 night stand and wants to be tested also for STD. The ROS documented in this emergency department record has been reviewed and confirmed by me. Those systems with pertinent positive or negative responses have been documented in the HPI. All other systems are other negative and/or noncontributory. - Related Data Home Medications Medication Instructions Recorded Confirmed Omeprazole 20 mg PO BID 02/07/20 05/06/22 Previous Rx's Medication Instructions Recorded [place] Carbonate 150 mg PO BID 30 Days #60 cap 05/11/22 Loratadine [Claritin] 10 mg PO DAILY 30 Days #30 tab 05/11/22 Lurasidone [Latuda] 120 mg PO 1800 30 Days #30 tab 05/11/22 Nicotine 14Mg/24Hr Patch [Habitrol] 1 patch TRANSDERM DAILY 14 Days 05/11/22 #14 patch Venlafaxine HCl ER [Effexor XR] 225 mg PO DAILY 30 Days #90 cap 05/11/22 clonazePAM [KlonoPIN] 2 mg PO BID 14 Days #0 tab 05/11/22 lamoTRIgine [LaMICtal] 200 mg PO BID 30 Days #120 tab 05/11/22 Pseudoephedrine 12Hr [Sudafed 12Hr] 120 mg PO Q12H #20 tab 02/26/23 predniSONE [Deltasone] 20 mg PO BID #10 tab 02/26/23 Acetaminophen-Codeine 300-30mg 1 tab PO Q6H PRN #12 tablet 03/06/23 [Tylenol #3] Doxycycline [Vibramycin] 100 mg PO BID 7 Days #14 capsule 03/06/23 Doxycycline [Vibramycin] 100 mg PO BID 7 Days #14 capsule 11/15/23 Allergies Allergy/AdvReac Type Severity Reaction Status Date / Time No Known Allergies Allergy Verified 08/15/23 20:08 Review of Systems ROS Statement: Those systems with pertinent positive or pertinent negative responses have been documented in the HPI. ROS Other: All systems not noted in ROS Statement are negative. 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 History of Any Multi-Drug Resistant Organisms: Other MDRO Past Surgical History: Cholecystectomy, Hysterectomy Past Anesthesia/Blood Transfusion Reactions: No Reported Reaction Past Psychological History: Anxiety, Bipolar, Depression, Panic Disorder Smoking Status: Current every day smoker Past Alcohol Use History: None Reported Past Drug Use History: None Reported - Past Family History Mother Family Medical History: No Reported History General Exam - General Exam Comments Initial Comments: PHYSICAL EXAM: General Impression: Alert and oriented x3, not in acute distress HEENT: Normocephalic atraumatic, extra-ocular movements intact, pupils equal and reactive to light bilaterally, mucous membranes moist. Cardiovascular: Heart regular rate and rhythm Chest: Able to complete full sentences, no retractions, no tachypnea Abdomen: abdomen soft, non-tender, non-distended, no organomegaly Musculoskeletal: Pulses present and equal in all extremities, no peripheral edema Motor: no focal deficits noted Neurological: CN II-XII grossly intact, no focal motor or sensory deficits noted Skin: Intact with no visualized rashes Psych: Normal affect and mood Pelvic exam: pink vaginal mucosa with no significant erythema, no discharge, non-malodorous Limitations: no limitations Course Vital Signs 11/15/23 11:45 Temperature 98 F Pulse Rate 95 Respiratory 16 Rate Blood Pressure 129/83 O2 Sat by Pulse 98 Oximetry Medical Decision Making - Medical Decision Making Was pt. sent in by a medical professional or institution (, PA, HOSPITALITY MANAGER, urgent care, hospital, or prison...) When possible be specific @ -No Did you speak to anyone other than the patient for history (EMS, parent, family, police, friend...)? What history was obtained from this source @ -No Did you review nursing and triage notes (agree or disagree)? Why? @ -I reviewed and agree with nursing and triage notes Were old charts reviewed (outside hosp., previous admission, EMS record, old EKG, old radiological studies, urgent care reports/EKG's, prison records)? Report findings @ -No old charts were reviewed Differential Diagnosis (chest pain, altered mental status, abdominal pain women, abdominal pain men, vaginal bleeding, musculoskeletal, weakness, fever, dyspnea, syncope, headache, dizziness, GI bleed, back pain, seizure, CVA, palpatations, mental health)? @ -Yeast vaginitis, BV, STD EKG interpreted by me (3pts min.). @ -None done X-rays interpreted by me (1pt min.). @ -None done CT interpreted by me (1pt min.). @ -None done U/S interpreted by me (1pt. min.). @ -None done What testing was considered but not performed or refused? (CT, X-rays, U/S, labs)? Why? @ -None What meds were considered but not given or refused? Why? @ -None Was smoking cessation discussed for >3mins.? @ -No Were there social determinants of health that impacted care today? How? (Homelessness, low income, unemployed, alcoholism, drug addiction, transportation, low edu. Level, literacy, decrease access to med. care, custodial, rehab)? @ -No Was there de-escalation of care discussed even if they declined (Discuss DNR or withdrawal of care, Hospice)? DNR status @ -No What co-morbidities impacted this encounter? (DM, HTN, Smoking, COPD, CAD, Cancer, CVA, ARF, Chemo, Hep., AIDS, mental health diagnosis, sleep apnea, morbid obesity)? @ -None Was patient admitted / discharged? Hospital course, mention meds given and route, prescriptions, significant lab abnormalities, going to OR and other perti nedanielle info. @ -48-year-old female presents to the emergency department for persistent vaginal symptoms. Patient states she had a high risk sexual encounter recently that she describes as a 1 night stand. Vital signs stable. Physical examination is benign. Pelvic exam did not show any signs of inflammation. She reports that she completed a course of Diflucan, Flagyl. She is concerned she has an STD. Patient treated with STD she was also tested. Pending endocervical results. Patient given a dose of IM ceftriaxone along with 7-day course of doxycycline. She has an appoint with her primary care doctor. Patient agreeable to discharge she is provided a work note per her request. Did you discuss the management of the patient with other professionals (professionals i.e. , PA, HOSPITALITY MANAGER, lab, RT, psych nurse, social contact worker, sheep or calf grader, teacher, geographic area intelligence officer, comp field case manager)? Give summary @ -No Was critical care preformed (if so, how long)? @ -No Undiagnosed new problem with uncertain prognosis? @ -No Drug Therapy requiring intensive monitoring for toxicity (Heparin, Nitro, Insulin, Cardizem)? @ -No Were any procedures done? @ -No Diagnosis/symptom? Acute, or Chronic, or Acute on Chronic? Uncomplicated (without systemic symptoms) or Complicated (systemic symptoms)? @ -Vaginitis Side effects of treatment? @ -No Exacerbation, Progression, or Severe Exacerbation? @ -No Poses a threat to life or bodily function? How? (Chest pain, [place], [place], pneumonia, PE, COPD, DKA, ARF, appy, cholecystitis, CVA, Diverticulitis, Homicidal, Suicidal, threat to staff... and all critical care pts) @ -No - Lab Data Lab Results 11/15/23 Range/Units 12:34 Urine Color Colorless Urine Appearance Clear (Clear) Urine pH 5.5 (5.0-8.0) Ur Specific [place] 1.026 (1.001-1.035) Urine Protein Negative (Negative) Urine Glucose (UA) 4+ H (Negative) Urine Ketones Negative (Negative) Urine Blood Negative (Negative) Urine Nitrite Negative (Negative) Urine Bilirubin Negative (Negative) Urine Urobilinogen <2.0 (<2.0) mg/dL Ur Leukocyte Esterase Negative (Negative) Disposition Clinical Impression: Vaginitis Disposition: HOME SELF-CARE Condition: Good Instructions (If sedation given, give patient instructions): Sexually Transmitted Diseases (ED) Prescriptions: Doxycycline [Vibramycin] 100 mg PO BID 7 Days #14 capsule Is patient prescribed a controlled substance at d/c from ED?: No Referrals: Mikael Mai DO [Primary Care Provider] - 1-2 days Time of Disposition: 13:43
[2023-11-15] MEDS: ALPRAZolam 0.25 MG TAB PO STA (12:46)
[2023-11-15 12:58] LABS: Appearance,Urine Clear (Clear); Bilirubin,Urine Negative (Negative); Blood,Urine Negative (Negative); Color,Urine Colorless; Glucose,Urine (UA) 4+ (Negative); Ketones,Urine Negative (Negative); Leukocyte Esterase,Urine Negative (Negative); Nitrite,Urine Negative (Negative); PH, Urine 5.5 (5.0-8.0); Protein,Urine Negative (Negative); Specific Gravity,Urine 1.026 (1.001-1.035); Urobilinogen,Urine <2.0 mg/dL (<2.0)
[2023-11-15] MEDS: cefTRIAXone 250 MG VIAL IM STA (13:52)
[2023-11-15 13:59] VITALS: BP 130/90; PULSE 90
[2023-11-16 14:10] LABS: C. trachomatis,PCR Negative (Negative)
[2023-11-16 14:28] LABS: N. gonorrhoeae,PCR Negative (Negative)
== END 2023-11-15 14:04 | disposition home or self-care (01) ==
LOC: EC 11:39
CPT/HCPCS: 81003; 87070; 87491; 87591; 87808; 96372; 99283

== ENCOUNTER → 2023-12-16 | Outpatient (CLI) | payer MEDICARE ==
[2023-12-16 15:30] LABS: Basophils # (A) 0.11 X 10*3/uL (0.00-0.10); Basophils % (A) 0.7 %; Eosinophils # (A) 0.26 X 10*3/uL (0.04-0.35); Eosinophils % (A) 1.6 %; HCT 51.3 % (37.2-46.3); HGB 16.4 g/dL (12.0-15.0); Lymphocytes # (A) 3.59 X 10*3/uL (0.90-5.00); MCH 30.4 pg (27.0-32.0); MCV 95.2 FL (80.0-97.0); Mean Platelet Volume 10.2 FL (9.5-12.2); Monocytes # (A) 0.71 X 10*3/uL (0.20-1.00); Monocytes % (A) 4.4 %; NRBC Per 100 WBC 0 X 10*3/uL (0.00-0.01); Neutrophils # (A) 11.49 X 10*3/uL (1.80-7.70); Neutrophils % (A) 70.3 %; Platelet Count 418 X 10*3/uL (140-440); RBC 5.39 X 10*6/uL (4.10-5.20); RDW 13.3 % (11.5-14.5); WBC 16.32 X 10*3/uL (4.50-10.00)
[2023-12-16 16:07] LABS: BUN/Creat Ratio 11.22 Ratio (12.00-20.00); Blood Urea Nitrogen 10.1 mg/dL (9.0-27.0); Calcium 9.7 mg/dL (8.7-10.3); Carbon Dioxide 24.9 mmol/L (21.6-31.8); Chloride 100 mmol/L (96-109); Glucose 176 mg/dL (70-110); Potassium 5.1 mmol/L (3.5-5.5); Sodium 137 mmol/L (135-145)
== END | disposition home or self-care (01) ==
LOC: LABWHC1 09:22
PROVIDERS: ATTEND Urology
DX: Z01.818 Encounter for other preprocedural examination
CPT/HCPCS: 36415; 80048; 85025; 93005

== ENCOUNTER 2023-12-21 08:27 | Day surgery (SDC) | payer MEDICARE ==
[2023-12-15 13:06] VITALS: BMI 39.4
[~2023-12-21 08:27] MED LIST changes: +DEXAMETHASONE SOD PHOSPHATE 4 MG/ML 1 ML VIAL IV ONE; +HYDROmorphone 0.5 MG/0.5 ML SYRINGE IVP PRN; +MIDAZOLAM 2 MG/2 ML VIAL IV PRN; -Pre Op ABX Message 1 EACH MISC MISCELLANE ONE; +SCOPOLAMINE 1 MG/72 HR PATCH TRANSDERM ONE
[2023-12-21] MEDS: IV FLUID CONTINUATION 1,000 ML IV ONE ×2 (08:53→11:30)
[2023-12-21 09:08] LABS: Glucose,Whole Blood 190 mg/dL (70-110)
[2023-12-21] MEDS: LACTATED RINGERS 1,000 ML IV SCH (09:17)
[2023-12-21] MEDS: ONDANSETRON 4 MG/2 ML VIAL IVP ONE (09:18)
[2023-12-21] MEDS: INSULIN ASPART (NovoLOG) 100 UNIT/ML VIAL SQ ONE (09:21)
--- NOTE | 2023-12-21 10:12 | P.HPIHPCON ---
History of Present Illness H&P Date: 12/21/23 Chief Complaint: Stress urinary incontinence This is a 48-year-old female with history of stress urinary incontinence, she is failed bulking med now was having persistent stress incontinence. Also has overactive bladder symptoms at baseline. She is mainly bothered by her stress incontinence. Discussed with her the option of a sling. Aware of the risk which include but not limited to bleeding, infection, persistent incontinence, urinary retention. Risk of mesh erosion and the need of use for mesh was discussed. Discussed risk of mesh erosion into the vagina, urethra, bladder. Discussed also her overactive bladder symptoms will persist even with a sling. She understood all the risk and agreed to proceed Consent for Procedure: I have explained the operation/procedure to the patient, including the risks, benefits, side effects, alternative therapies (including not receiving the proposed treatment or service), the likelihood of the patient achieving his/her goals, and potential recuperation problems for the procedure/sedation/analgesia, as well as any blood products, if indicated. I also explained to the patient the risks, benefits and side effects of the alternatives, as well as the risks related to not receiving the proposed procedure, care, treatment, or services. 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 History of Any Multi-Drug Resistant Organisms: Other MDRO Past Surgical History: Cholecystectomy, Hysterectomy Past Anesthesia/Blood Transfusion Reactions: No Reported Reaction Smoking Status: Current every day smoker - Past Family History Mother Family Medical History: Cancer Medications and Allergies Home Medications Medication Instructions Recorded Confirmed Type Cariprazine HCl [Vraylar] 1.5 mg PO DAILY 12/15/23 12/21/23 History [place] Carbonate 150 mg PO DAILY 12/15/23 12/21/23 History Lurasidone [Latuda] 20 mg PO DAILY 12/15/23 12/21/23 History Semaglutide [Rybelsus] 3 mg PO DAILY 12/15/23 12/21/23 History Venlafaxine HCl ER [Effexor XR] 75 mg PO TID 12/15/23 12/21/23 History clonazePAM [KlonoPIN] 2 mg PO TID 12/15/23 12/21/23 History lamoTRIgine 100 mg PO BID 12/15/23 12/21/23 History lamoTRIgine [LaMICtal] 150 mg PO BID 12/15/23 12/21/23 History Allergies Allergy/AdvReac Type Severity Reaction Status Date / Time No Known Allergies Allergy Verified 12/21/23 08:49 Surgical - Exam Vital Signs Temp Pulse Resp BP Pulse Ox 97.1 F L 85 16 142/88 98 12/21/23 08:51 12/21/23 08:51 12/21/23 08:51 12/21/23 08:51 12/21/23 08:51 - General no distress, no pain - Eyes normal ocular movement, no pale - ENT normal nares, normal mucosa - Respiratory normal expansion, normal respiratory effort - Abdomen Abdomen: soft, non tender Results - Labs Abnormal Lab Results - Last 24 Hours (Table) 12/21/23 Range/Units 09:06 POC Glucose (mg/dL) 190 H (70-110) mg/dL Assessment and Plan Assessment: OR for transobturator mid uretheral sling
[2023-12-21] MEDS ORDERED: MIDAZOLAM 2 MG/2 ML VIAL ONE (10:37)
[2023-12-21] MEDS ORDERED: PROPOFOL 10 MG/ML 20 ML VIAL IV ONE (10:37)
[2023-12-21] MEDS ORDERED: ePHEDrine 50 MG/ML 1 ML VIAL ONE (10:37)
[2023-12-21] MEDS ORDERED: PHENYLEPHRINE 10 MG/ML VIAL ONE (10:37)
[2023-12-21] MEDS ORDERED: fentaNYL (PF) 50 MCG/ML 2 ML AMP ONE (10:37)
[2023-12-21] MEDS ORDERED: LIDOCAINE 4% LTA KIT (4 ML) TOPICAL ONE (10:37)
[2023-12-21] MEDS ORDERED: SUCCINYLCHOLINE CHLORIDE 200 MG/10 ML VIAL IV ONE (10:37)
[2023-12-21] MEDS ORDERED: LIDOCAINE 1% INJ 10MG/ML (20 ML MDV) ONE (10:37)
[2023-12-21] MEDS: LIDOCAINE 1%-EPI 1:100,000 20 ML VIAL SQ ONE ×2 (11:07)
[2023-12-21] MEDS: GENTAMICIN 80 MG in SODIUM CHLORIDE 0.9% 500 ML 500 ML IRRIGATION ONE (11:16)
[2023-12-21] MEDS: KETOROLAC 15 MG/ML 1 ML VIAL IVP STA (12:40)
[2023-12-21 12:43] VITALS: TEMP 97
[2023-12-21 12:57] VITALS: RESP 16
[2023-12-21 13:29] VITALS: BP 111/62; PULSE 88
--- NOTE | 2023-12-21 14:18 | P.OP ---
Date of Procedure: 12/21/23 Preoperative Diagnosis: Stress urinary incontinence Postoperative Diagnosis: Same Procedure(s) Performed: Transobturator mid urethral sling Implants: Obtyrux [place] [employer] mesh, placed at the mid urethra Anesthesia: NASIMA Surgeon: Constantine Wells Estimated Blood Loss (ml): 100 Pathology: none sent Condition: stable Disposition: PACU Indications for Procedure: This is a 48-year-old female with history of stress urinary incontinence, she is failed bulking med now was having persistent stress incontinence. Also has overactive bladder symptoms at baseline. She is mainly bothered by her stress incontinence. Discussed with her the option of a sling. Aware of the risk which include but not limited to bleeding, infection, persistent incontinence, urinary retention. Risk of mesh erosion and the need of use for mesh was discussed. Discussed risk of mesh erosion into the vagina, urethra, bladder. Discussed also her overactive bladder symptoms will persist even with a sling. She understood all the risk and agreed to proceed Description of Procedure: The patient was taken to the operating room and placed in the dorsal lithotomy position, with her legs supported in Carlos stirrups. The perineum, lower abdomen, and vagina were prepped and draped sterilely. A 16-English Argueta catheter was placed. Silk sutures were placed to retract the labia laterally on each side. 0.5% Marcaine with epinephrine was injected submucosally within the anterior vaginal wall, over the urethra. The scalpel was then used to make an anterior midline vaginal incision over the urethra. Metzenbaum scissors were used to dissect laterally within the submucosal plane, to the inferior pubic ramus. The scalpel was used to make bilateral groin incisions at the level of the clitoris. Subcutaneous tissues were spread with a hemostat. Each of the helical needles were passed through the respective groin incision, and turned such that the needle tip wrapped around the pubis. The needle tips were guided digitally into the vaginal incision. The Obtryx graft, which had been previously soaked in antibiotic solution, was secured to the needle tips in the standard fashion. The needles were then withdrawn, and the position of the g raft was adjusted such that it overlie the mid urethra, as desired. With a hemostat placed between the graft and the urethra to prevent tension of the graft over the urethra, the plastic sheath was removed from the ends of the graft. The ends of the graft were cut beneath the skin incisions, and these incisions were closed using 4-0 Vicryl suture in a subcuticular fashion. Hemostasis within the vaginal incision was adequate, and the vaginal incision was closed using 2-0 Vicryl suture in a running fashion. Cystoscopy was performed. The 30 lens was used to introduce the 19-English Storz cystoscopic sheath through the urethra and into the bladder under direct vision. The urethra and bladder were unremarkable. There was no evidence of perforation. Both ureteral orifices were of normal anatomic location and configuration, and clear urine effluxed from both. No tumors or foreign bodies were seen. The cystoscope was removed, and the Argueta catheter was replaced into the bladder. Vaginal packing was placed. All sponge and needle counts were correct. The patient tolerated the procedure well was taken to the recovery room in stable condition.
== END 2023-12-21 13:44 | disposition home or self-care (01) ==
LOC: OR 08:27
PROVIDERS: ATTEND Urology
DX: N39.3 Stress incontinence (female) (male)

== ENCOUNTER → 2024-02-25 | Outpatient (CLI) | payer MEDICARE, OTHER ==
--- NOTE | 2024-02-25 08:46 | US ---
EXAMINATION TYPE: US abdomen complete DATE OF EXAM: 02/25/2024 COMPARISON: NONE CLINICAL INDICATION: Female, 48 years old with history of R14.0 ABDOMINAL DISTENSION (GASEOUS); Bloat ing TECHNIQUE: Grayscale and color Doppler imaging of the abdomen was performed. FINDINGS: EXAM MEASUREMENTS: Liver Length: 21.3 cm Gallbladder Wall: Surgically absent CBD: 0.5 cm, color Doppler imaging was utilized to isolate the common bile duct for measurement. Spleen: 11.4 cm Right Kidney: 9.1 x 4.5 x 4.0 cm Left Kidney: 11.4 x 5.9 x 5.8 cm PLC PROGRAMMER NOTES: Pancreas: Tail obscured by overlying bowel gas Liver: Hepatomegaly increased attenuation. Gallbladder: Surgically absent Evidence for sonographic Elizalde's sign: No CBD: wnl Spleen: wnl Right Kidney: No hydronephrosis or masses seen Left Kidney: No hydronephrosis or masses seen Upper IVC: wnl Abd Aorta: wnl The liver is homogenous with increased size and echotexture. The intrahepatic portion of the IVC and proximal abdominal aorta are within normal limits. Common bile duct is unremarkable. The visualize d portions of the pancreas are homogenous. The spleen is unremarkable. Kidneys are symmetric and fr ee of hydronephrosis. No renal lesions are seen. IMPRESSION: 1. Hepatic steatosis with hepatomegaly. 2. No evidence for acute process. [facility], , 02/25/2024 8:43 AM
== END | disposition home or self-care (01) ==
LOC: RADUSWWP 07:13
PROVIDERS: ATTEND Internal Medicine Gastroenterology
DX: R16.0 Hepatomegaly, not elsewhere classified (principal); R14.0 Abdominal distension (gaseous); K76.0 Fatty (change of) liver, not elsewhere classified
CPT/HCPCS: 76700

== ENCOUNTER 2024-03-16 10:46 | Emergency (ER) | payer MEDICARE ==
--- NOTE | 2024-03-16 11:19 | ED ---
Extremity Problem HPI - General Chief complaint: Extremity Injury, Lower Stated complaint: rt lower ext pain, low back pain Time Seen by Provider: 03/16/24 11:10 Source: patient, RN notes reviewed Mode of arrival: ambulatory Limitations: no limitations - History of Present Illness Initial comments: This is a 48-year-old female who presents to the emergency department for right leg pain. States that a month ago she noticed that she was getting pain in her right heel. However, over the last week in particular she has had pain in the right thigh and right calf. Unsure if it is related. She saw her PCP a week ago and was told to wear gel inserts, however this has not been effective. She does report some pain in her lower back as well. Denies any history of sciatica. She tried taking [id number] ibuprofen without any relief. Denies any injuries or loss of bowel/bladder control or saddle anesthesia. - Related Data Home Medications Medication Instructions Recorded Confirmed Cariprazine HCl [Vraylar] 1.5 mg PO DAILY 12/15/23 12/21/23 [place] Carbonate 150 mg PO DAILY 12/15/23 12/21/23 Lurasidone [Latuda] 20 mg PO DAILY 12/15/23 12/21/23 Semaglutide [Rybelsus] 3 mg PO DAILY 12/15/23 12/21/23 Venlafaxine HCl ER [Effexor XR] 75 mg PO TID 12/15/23 12/21/23 clonazePAM [KlonoPIN] 2 mg PO TID 12/15/23 12/21/23 lamoTRIgine 100 mg PO BID 12/15/23 12/21/23 lamoTRIgine [LaMICtal] 150 mg PO BID 12/15/23 12/21/23 Previous Rx's Medication Instructions Recorded Cephalexin [Keflex] 500 mg PO Q8HR #15 cap 12/21/23 Ketorolac [Toradol] 10 mg PO Q6HR PRN #15 tab 12/21/23 Cyclobenzaprine [Flexeril] 10 mg PO TID PRN #30 tab 03/16/24 Lidocaine 5% Patch [Lidoderm 5% 1 patch TOPICAL DAILY PRN #30 patch 03/16/24 Patch] predniSONE 50 mg PO DAILY 5 Days #5 tab 03/16/24 Allergies Allergy/AdvReac Type Severity Reaction Status Date / Time No Known Allergies Allergy Verified 03/16/24 10:52 Review of Systems ROS Statement: Those systems with pertinent positive or pertinent negative responses have been documented in the HPI. ROS Other: All systems not noted in ROS Statement are negative. Past Medical History Past Medical History: GERD/Reflux, Memory Impairment Additional Past Medical History / Comment(s): Chronic laryngitis, short and longterm memory problems., states some difficulty swallowing . History of Any Multi-Drug Resistant Organisms: Other MDRO Past Surgical History: Cholecystectomy, Hysterectomy Past Anesthesia/Blood Transfusion Reactions: No Reported Reaction Past Psychological History: Anxiety, Bipolar, Depression, Panic Disorder Smoking Status: Current every day smoker - Past Family History Mother Family Medical History: Cancer General Exam Limitations: no limitations General appearance: alert, in no apparent distress Head exam: Present: atraumatic, normocephalic, normal inspection Respiratory exam: Present: normal lung sounds bilaterally. Absent: respiratory distress, wheezes, rales, rhonchi, stridor Cardiovascular Exam: Present: regular rate, normal rhythm, normal heart sounds. Absent: systolic murmur, diastolic murmur, rubs, gallop, clicks Extremities exam: Present: other (Tenderness to palpation of the right thigh and calf. No swelling or erythema. 2+ DP and PT pulses) Back exam: Present: other (Tenderness to palpation over the right lower back) Neurological exam: Present: alert, oriented X3, CN II-XII intact Psychiatric exam: Present: normal affect, normal mood Skin exam: Present: warm, dry, intact, normal color. Absent: rash Course Vital Signs 03/16/24 03/16/24 10:51 13:17 Temperature 97.9 F 98.0 F Pulse Rate 87 82 Respiratory 16 18 Rate Blood Pressure 121/67 120/72 O2 Sat by Pulse 96 98 Oximetry Medical Decision Making - Medical Decision Making This is a 48-year-old female who presents to the emergency department for right leg pain and right lower back pain. Was pt. sent in by a medical professional or institution? @ -No Did you speak to anyone other than the patient for history? @ -No Did you review nursing and triage notes? @ -Yes, and I agree, it is accurate with regards to the patient's symptoms. Were old charts reviewed? @ -No Differential Diagnosis? @ -Differential Back Pain: Strain, zoster, cauda equina syndrome, epidural abscess, vertebral osteomyelitis, discitis, fracture, subluxation, disc herniation, DJD, spinal stenosis, dissection, AAA, pancreatitis, peptic ulcer disease, pyelonephritis, kidney stone, this is not meant to be an all-inclusive list. EKG interpreted by me (3pts min.)? @ -Not obtained X-rays interpreted by me (1pt min.)? @ -X-ray of the lumbar spine obtained. My interpretation identifies no acute fractures. CT interpreted by me (1pt min.)? @ -Not obtained U/S interpreted by me (1pt. min.)? @ -Duplex ultrasound of the right lower extremity obtained. My interpretation identifies no evidence of a DVT. What testing was considered but not performed? (CT, X-rays, U/S, labs)? Why? @ -None What meds were considered but not given? Why? @ -None Did you discuss the management of the patient with other professionals? @ -No Did you reconcile home meds? @ -No Was smoking cessation discussed for >3mins.? @ -I discussed smoking cessation for greater than 3 minutes. The risk of smoking were discussed with the patient including but not limited to risks of cancer, stroke, coronary artery disease and COPD. Also discussed with patient were multiple methods of quitting smoking. Lastly we discussed the financial cost of smoking. Was critical care preformed (if so, how long)? @ -No Were there social determinants of health that impacted care today? How? (Homelessness, low income, unemployed, alcoholism, drug addiction, transportation, low edu. Level, literacy, decrease access to med. care, penitentiary, rehab)? @ -No Was there de-escalation of care discussed even if they declined? (Discuss DNR or withdrawal of care, Hospice)? @ -No What co-morbidities impacted this encounter? (DM, HTN, Smoking, COPD, CAD, Cancer, CVA, Hep., AIDS, mental health diagnosis, sleep apnea, morbid obesity)? @ -Smoking Was patient admitted / discharged? @ -Discharged. Duplex ultrasound of the right lower extremity obtained revealing no evidence of a DVT. X-ray of the lumbar spine obtained revealing degenerative changes without any acute process. Pain was managed in the emergency department. This is likely related to sciatica/lumbar radiculopathy. Prescription for prednisone, Flexeril, and lidocaine patches provided. Advised follow-up with her PCP for reevaluation. Patient discharged home in stable condition. Case discussed with ED attending Dr. Harrison. Return precautions reviewed in depth, the patient is instructed to return to the emergency department with any new, worsening, or concerning symptoms. Patient verbalized understanding. Undiagnosed new problem with uncertain prognosis? @ -None Drug Therapy requiring intensive monitoring for toxicity (Heparin, Nitro, Insulin, Cardizem)? @ -None Were any procedures done? @ -None Diagnosis/symptom? @ -Sciatica, lumbar radiculopathy Acute, or Chronic, or Acute on Chronic? @ -Acute Uncomplicated (without systemic symptoms) or Complicated (systemic symptoms)? @ -Uncomplicated Side effects of treatment? @ -None Exacerbation, Progression, or Severe Exacerbation] @ -Not applicable Poses a threat to life or bodily function? @ -No - Radiology Data Radiology results: report reviewed, image reviewed Disposition Clinical Impression: Lumbar radiculopathy, Sciatica, Nicotine dependence Disposition: HOME SELF-CARE Instructions (If sedation given, give patient instructions): Sciatica (ED), Lumbar Radiculopathy (ED) Additional Instructions: Return to the emergency department with any new, worsening, or concerning symptoms. Take the prednisone daily for 5 days. Take the Flexeril up to 3 times daily, however be aware that this may make you drowsy. You can also apply the lidocaine patches daily. Follow up with your primary care provider in 1-2 days. Prescriptions: Cyclobenzaprine [Flexeril] 10 mg PO TID PRN #30 tab PRN Reason: Pain Lidocaine 5% Patch [Lidoderm 5% Patch] 1 patch TOPICAL DAILY PRN #30 patch PRN Reason: Pain predniSONE 50 mg PO DAILY 5 Days #5 tab Is patient prescribed a controlled substance at d/c from ED?: No Referrals: Mikael Mai DO [Primary Care Provider] - 1-2 days Time of Disposition: 12:49
--- NOTE | 2024-03-16 12:05 | US ---
EXAMINATION TYPE: US venous doppler duplex LE RT DATE OF EXAM: 03/16/2024 11:52 AM COMPARISON: NONE CLINICAL INDICATION: Female, 48 years old with history of Leg pain; , Pain TECHNIQUE: The lower extremity deep venous system is examined utilizing real time linear array sonog leigh ann with graded compression, color doppler sonography, and spectral doppler. SIDE PERFORMED: Right FINDINGS: VESSELS IMAGED: Common Femoral Vein Deep Femoral Vein Greater Saphenous Vein * Femoral Vein Popliteal Vein Small Saphenous Vein * Proximal Calf Veins (* superficial vessels) Right Leg: Negative for DVT, Color Doppler imaging shows patency of the vessels. Spectral waveforms are within normal limits. IMPRESSION: 1. Right lower extremity ultrasound negative for deep venous thrombosis [facility], , 03/16/2024 12:03 PM
--- NOTE | 2024-03-16 12:35 | XR ---
EXAMINATION TYPE: XR lumbar spine 2 or 3V DATE OF EXAM: 03/16/2024 12:27 PM COMPARISON: 03/28/2015 CLINICAL INDICATION: Female, 48 years old with history of Low back pain, pain TECHNIQUE: 3 view(s) obtained. FINDINGS: There are 5 lumbar-type vertebral bodies. Pedicles are intact. Some narrowing of the L5-S1 disc heigh t is present. Minimal spondylosis with spurring is present. Vertebral body heights and remaining disc heights are preserved. No significant interval change comparison. IMPRESSION: 1. Mild degenerative disc change L5-S1 [facility], , 03/16/2024 12:32 PM
[2024-03-16] MEDS: ORPHENADRINE 30 MG/ML 2 ML VIAL IM STA (12:47)
[2024-03-16] MEDS: KETOROLAC 15 MG/ML 1 ML VIAL IM STA (12:47)
[2024-03-16] MEDS: DEXAMETHASONE SOD PHOSPHATE 10 MG/ML 1 ML VIAL IM STA (12:47)
[2024-03-16] MEDS: ACET/COD 300 MG/30 MG STARTER PACK 6 TAB BTL PO STA (13:00)
[2024-03-16 13:19] VITALS: BP 120/72; PULSE 82; RESP 18; TEMP 98
== END 2024-03-16 13:30 | disposition home or self-care (01) ==
LOC: EC 10:46
DX: M54.16 Radiculopathy, lumbar region (principal); M54.31 Sciatica, right side; F17.200 Nicotine dependence, unspecified, uncomplicated
CPT/HCPCS: 72100; 93971; 99284; 99406; 96372; J1100; J2360; J1885

== ENCOUNTER → 2024-03-16 | Outpatient (CLI) | payer MEDICARE ==
--- NOTE | 2024-03-16 14:33 | XR ---
EXAMINATION TYPE: XR foot limited RT DATE OF EXAM: 03/16/2024 1:50 PM COMPARISON: None. CLINICAL INDICATION: Female, 48 years old with history of M79.671 PAIN IN RIGHT FOOT, pain TECHNIQUE: 2 view(s) obtained. FINDINGS: No acute fracture or dislocation evident. Joint spaces are preserved. Plantar calcaneal heel spur is present. Follow up exams can be performed 7-10 days from acute trauma for continued pain. IMPRESSION: 1. Plantar calcaneal heel spur. 2. No acute osseous abnormality. [facility], , 03/16/2024 2:31 PM
== END | disposition home or self-care (01) ==
LOC: RADXRMAIN 13:23
PROVIDERS: ATTEND Family Medicine
DX: M77.31 Calcaneal spur, right foot (principal); M79.671 Pain in right foot

== ENCOUNTER 2024-05-28 14:59 | Emergency (ER) | payer MEDICARE, OTHER ==
[2024-05-28 16:38] LABS: Basophils # (A) 0.1 k/uL (0-0.2); Basophils % (A) 1 %; Eosinophils # (A) 0.3 k/uL (0-0.7); Eosinophils % (A) 2 %; HCT 50.1 % (34.0-46.0); Lymphocytes # (A) 3.5 k/uL (1.0-4.8); Lymphocytes % (A) 28 %; MCH 30.3 pg (25.0-35.0); MCHC 31.8 g/dL (31.0-37.0); MCV 95.2 fL (80.0-100.0); Mean Platelet Volume 7.6; Monocytes # (A) 0.4 k/uL (0-1.0); Monocytes % (A) 4 %; Neutrophils # (A) 8.2 k/uL (1.3-7.7); Neutrophils % (A) 65 %; Platelet Count 361 k/uL (150-450); RBC 5.27 m/uL (3.80-5.40); RDW 13.4 % (11.5-15.5); WBC 12.7 k/uL (3.8-10.6)
[2024-05-28 16:51] LABS: ALT 25 U/L (4-34); AST 19 U/L (14-36); African American GFR (CKD) >90 (>60 ml/min/1.73 sqM); Albumin 4.1 g/dL (3.5-5.0); Alkaline Phosphatase 158 U/L (38-126); Anion Gap 8 mmol/L; Blood Urea Nitrogen 7 mg/dL (7-17); Calcium 9.8 mg/dL (8.4-10.2); Carbon Dioxide 28 mmol/L (22-30); Chloride 100 mmol/L (98-107); Glucose 135 mg/dL (74-99); Lipase 89 U/L (23-300); Non-African American GFR(CKD) >90 (>60 ml/min/1.73 sqM); Potassium 4.2 mmol/L (3.5-5.1); Sodium 136 mmol/L (137-145); Total Bilirubin 0.4 mg/dL (0.2-1.3); Total Protein 7.1 g/dL (6.3-8.2)
--- NOTE | 2024-05-28 16:59 | CT ---
EXAMINATION TYPE: CT abdomen pelvis w con DATE OF EXAM: 05/28/2024 4:45 PM COMPARISON: None. CLINICAL INDICATION: Female, 48 years old with history of abdominal pain - epigastric, abd distention , s/p c, Epigastric pain and distention. TECHNIQUE:CT scan of the abdomen and pelvis is performed without Oral Contrast and with IV Contrast, patient injected with 100 ml mL of Isovue 300. CT DLP: 1920.7 mGycm, Automated exposure control for dose reduction was used. FINDINGS: LUNG BASES-: No visible nodule. No infiltrate. LIVER/GB: Hepatomegaly with underlying hepatic steatosis. The gallbladder is surgically absent. No sp manjinder occupying hepatic lesion. Biliary tree is of normal caliber. PANCREAS: No inflammation. No distinct mass. SPLEEN: No splenic enlargement. No lesion seen. ADRENALS: No nodule. No thickening. KIDNEYS/BLADDER: No hydronephrosis. No nephrolithiasis. No distinct renal mass. Urinary bladder g rossly unremarkable. BOWEL: Normal appendix. Normal bowel caliber. No inflammation. Scattered colonic diverticulosis wit hout diverticulitis greatest in the region of the sigmoid colon. GENITAL ORGANS: Hysterectomy changes without vaginal cuff mass. No evidence for adnexal mass. LYMPH NODES: No greater than 1cm abdominal or pelvic lymph nodes are appreciated. AORTA: No significant abnormality. OSSEOUS STRUCTURES: No significant abnormality is seen. OTHER: No significant additional abnormality is seen. IMPRESSION: 1. Colonic diverticulosis without diverticulitis 2. Hepatomegaly with hepatic steatosis. Status post cholecystectomy [facility], , 05/28/2024 4:57 PM
--- NOTE | 2024-05-28 17:39 | ED ---
Abdominal Pain HPI - General Chief Complaint: Abdominal Pain Stated Complaint: abd pain Time Seen by Provider: 05/28/24 15:15 Source: patient Mode of arrival: ambulatory Limitations: no limitations - History of Present Illness Initial Comments: 48-year-old female who presents to the emergency department complaining of epigastric discomfort. States that the pain has been going on for several months. She has also noted some distention to her abdomen. She went to an urgent care who recommended that she come over to the emergency department for evaluation. She has no associated fevers. No nausea or vomiting. No chest pain or difficulty breathing. No changes in her bowel or bladder habits to include diarrhea, constipation, black or bloody stools. No vaginal bleeding or discharge. No concern for . No hematuria, dysuria or difficulty voiding. Patient is status postcholecystectomy. No other alleviating, precipitating or modifying factors - Related Data Home Medications Medication Instructions Recorded Confirmed Cariprazine HCl [Vraylar] 1.5 mg PO DAILY 12/15/23 12/21/23 Surrency Carbonate 150 mg PO DAILY 12/15/23 12/21/23 Lurasidone [Latuda] 20 mg PO DAILY 12/15/23 12/21/23 Semaglutide [Rybelsus] 3 mg PO DAILY 12/15/23 12/21/23 Venlafaxine HCl ER [Effexor XR] 75 mg PO TID 12/15/23 12/21/23 clonazePAM [KlonoPIN] 2 mg PO TID 12/15/23 12/21/23 lamoTRIgine 100 mg PO BID 12/15/23 12/21/23 lamoTRIgine [LaMICtal] 150 mg PO BID 12/15/23 12/21/23 Previous Rx's Medication Instructions Recorded Cephalexin [Keflex] 500 mg PO Q8HR #15 cap 12/21/23 Ketorolac [Toradol] 10 mg PO Q6HR PRN #15 tab 12/21/23 Cyclobenzaprine [Flexeril] 10 mg PO TID PRN #30 tab 03/16/24 Lidocaine 5% Patch [Lidoderm 5% 1 patch TOPICAL DAILY PRN #30 patch 03/16/24 Patch] predniSONE 50 mg PO DAILY 5 Days #5 tab 03/16/24 Allergies Allergy/AdvReac Type Severity Reaction Status Date / Time No Known Allergies Allergy Verified 03/16/24 10:52 Review of Systems ROS Statement: Those systems with pertinent positive or pertinent negative responses have been documented in the HPI. ROS Other: All systems not noted in ROS Statement are negative. Past Medical History Past Medical History: GERD/Reflux, Memory Impairment Additional Past Medical History / Comment(s): Chronic laryngitis, short and jail memory problems., states some difficulty swallowing . History of Any Multi-Drug Resistant Organisms: Other MDRO Past Surgical History: Cholecystectomy, Hysterectomy Past Anesthesia/Blood Transfusion Reactions: No Reported Reaction Past Psychological History: Anxiety, Bipolar, Depression, Panic Disorder Smoking Status: Current every day smoker - Past Family History Mother Family Medical History: Cancer General Exam Limitations: no limitations General appearance: alert, in no apparent distress Head exam: Present: atraumatic, normocephalic, normal inspection Eye exam: Present: normal appearance, PERRL, EOMI. Absent: scleral icterus, conjunctival injection, periorbital swelling ENT exam: Present: normal exam, mucous membranes moist Neck exam: Present: normal inspection. Absent: tenderness, meningismus, lympha denopathy Respiratory exam: Present: normal lung sounds bilaterally. Absent: respiratory distress, wheezes, rales, rhonchi, stridor Cardiovascular Exam: Present: regular rate, normal rhythm, normal heart sounds. Absent: systolic murmur, diastolic murmur, rubs, gallop, clicks GI/Abdominal exam: Present: soft, tenderness (Epigastric tenderness), normal bowel sounds. Absent: distended, guarding, rebound, rigid Extremities exam: Present: normal inspection, full ROM, normal capillary refill. Absent: tenderness, pedal edema, joint swelling, calf tenderness Back exam: Present: normal inspection Neurological exam: Present: alert, oriented X3, CN II-XII intact Psychiatric exam: Present: normal affect, normal mood Skin exam: Present: warm, dry, intact, normal color. Absent: rash Course Vital Signs 05/28/24 05/28/24 15:11 17:51 Temperature 98 F 98.0 F Pulse Rate 83 85 Respiratory 16 17 Rate Blood Pressure 116/76 145/89 O2 Sat by Pulse 95 96 Oximetry Medical Decision Making - Medical Decision Making Was pt. sent in by a medical professional or institution (, PA, BILLING DEPARTMENT SUPERVISOR, urgent care, hospital, or correction...) When possible be specific @ -Patient was sent in from urgent care Did you speak to anyone other than the patient for history (EMS, parent, family, police, friend...)? What history was obtained from this source @ -No Did you review nursing and triage notes (agree or disagree)? Why? @ -I reviewed and agree with nursing and triage notes Were old charts reviewed (outside hosp., previous admission, EMS record, old EKG, old radiological studies, urgent care reports/EKG's, correction records)? Report findings @ -No old charts were reviewed Differential Diagnosis (chest pain, altered mental status, abdominal pain women, abdominal pain men, vaginal bleeding, weakness, fever, dyspnea, syncope, headache, dizziness, GI bleed, back pain, seizure, CVA, palpatations, mental health, musculoskeletal)? @ -Differential Abdominal Pain Women: Appendicitis, Cholecystitis, diverticulosis, ischemic bowel, pancreatitis, hepatitis, UTI, gastroenteritis, AAA, incarcerated hernia, bowel obstruction, constipation, inflammatory bowel, hepatitis, peptic ulcer disease, splenic infarction, perforated viscus, vulvitis, ovarian torsion, PID, kidney stone, placenta abruption, this is not meant to be an all-inclusive list EKG interpreted by me (3pts min.). @ -Yes and demonstrates sinus rhythm with a rate of 77. NH interval 172. QRS 85. QTc of 402. No acute ST segment elevations or depressions X-rays interpreted by me (1pt min.). @ -None done CT interpreted by me (1pt min.). @ -Yes and demonstrates no acute process U/S interpreted by me (1pt. min.). @ -None done What testing was considered but not performed or refused? (CT, X-rays, U/S, labs)? Why? @ -None What meds were considered but not given or refused? Why? @ -None Did you discuss the management of the patient with other professionals (professionals i.e. , PA, BILLING DEPARTMENT SUPERVISOR, lab, RT, psych nurse, clinical social work aide, director emergency services, teacher, vessel traffic officer, supervisor case loading)? Give summary @ -No Was smoking cessation discussed for >3mins.? @ -No Was critical care preformed (if so, how long)? @ -No Were there social determinants of health that impacted care today? How? (Homelessness, low income, unemployed, alcoholism, drug addiction, transportation, low edu. Level, literacy, decrease access to med. care, penitentiary, rehab)? @ -No Was there de-escalation of care discussed even if they declined (Discuss DNR or withdrawal of care, Hospice)? DNR status @ -No What co-morbidities impacted this encounter? (DM, HTN, Smoking, COPD, CAD, Cancer, CVA, ARF, Chemo, Hep., AIDS, mental health diagnosis, sleep apnea, morbid obesity)? @ -None Was patient admitted / discharged? Hospital course, mention meds given and route, prescriptions, significant lab abnormalities, going to OR and other pertinent info. @ -Upon arrival patient seen and evaluated in hallway 11. Thorough history and physical exam was performed. Twelve-lead EKG was performed. Laboratory studies are conducted. CT was performed. CT demonstrates hepatomegaly. Results are discussed with patient. I did recommend exercise and dietary changes. Recommended the patient follow-up with the primary care doctor in 2 to 4 days. I also recommend that she follow-up with Dr. Munoz for further management of her abdominal pain. Return for any new or worsening symptoms. Patient agreeable plan was discharged in stable condition Undiagnosed new problem with uncertain prognosis? @ -No Drug Therapy requiring intensive monitoring for toxicity (Heparin, Nitro, Insulin, Cardizem)? @ -No Were any procedures done? @ -No Diagnosis/symptom? @ -Acute epigastric tenderness, hepatomegaly, obesity Acute, or Chronic, or Acute on Chronic? @ -Acute Uncomplicated (without systemic symptoms) or Complicated (systemic symptoms)? @ -Complicated Side effects of treatment? @ -No Exacerbation, Progression, or Severe Exacerbation? @ -No Poses a threat to life or bodily function? How? (Chest pain, [place], [place], pneumonia, PE, COPD, DKA, ARF, appy, cholecystitis, CVA, Diverticulitis, Homicidal, Suicidal, threat to staff... and all critical care pts) @ -No - Lab Data Result diagrams: 05/28/24 16:31 05/28/24 16: Lab Results 05/28/24 05/28/24 05/28/24 Range/Units 16:31 16: 16: WBC 12.7 H (3.8-10.6) k/uL RBC 5.27 (3.80-5.40) m/uL Hgb 16.0 (11.4-16.0) gm/dL Hct 50.1 H (34.0-46.0) % MCV 95.2 (80.0-100.0) fL MCH 30.3 (25.0-35.0) pg MCHC 31.8 (31.0-37.0) g/dL RDW 13.4 (11.5-15.5) % Plt Count 361 (150-450) k/uL MPV 7.6 Neutrophils % 65 % Lymphocytes % 28 % Monocytes % 4 % Eosinophils % 2 % Basophils % 1 % Neutrophils # 8.2 H (1.3-7.7) k/uL Lymphocytes # 3.5 (1.0-4.8) k/uL Monocytes # 0.4 (0-1.0) k/uL Eosinophils # 0.3 (0-0.7) k/uL Basophils # 0.1 (0-0.2) k/uL Sodium 136 L (137-145) mmol/L Potassium 4.2 (3.5-5.1) mmol/L Chloride 100 (98-107) mmol/L Carbon Dioxide 28 (22-30) mmol/L Anion Gap 8 mmol/L BUN 7 (7-17) mg/dL Creatinine 0.68 (0.52-1.04) mg/dL Est GFR (CKD-EPI)AfAm >90 (>60 ml/min/1.73 sqM) Est GFR (CKD-EPI)NonAf >90 (>60 ml/min/1.73 sqM) Glucose 135 H (74-99) mg/dL Calcium 9.8 (8.4-10.2) mg/dL Total Bilirubin 0.4 (0.2-1.3) mg/dL AST 19 (14-36) U/L ALT 25 (4-34) U/L Alkaline Phosphatase 158 H (38-126) U/L Troponin I <0.012 (0.000-0.034) ng/mL Total Protein 7.1 (6.3-8.2) g/dL Albumin 4.1 (3.5-5.0) g/dL Lipase 89 (23-300) U/L Urine Color Urine Appearance (Clear) Urine pH (5.0-8.0) Ur Specific [place] (1.001-1.035) Urine Protein (Negative) Urine Glucose (UA) (Negative) Urine Ketones (Negative) Urine Blood (Negative) Urine Nitrite (Negative) Urine Bilirubin (Negative) Urine Urobilinogen (<2.0) mg/dL Ur Leukocyte Esterase (Negative) 05/28/24 Range/Units 17:34 WBC (3.8-10.6) k/uL RBC (3.80-5.40) m/uL Hgb (11.4-16.0) gm/dL Hct (34.0-46.0) % MCV (80.0-100.0) fL MCH (25.0-35.0) pg MCHC (31.0-37.0) g/dL RDW (11.5-15.5) % Plt Count (150-450) k/uL MPV Neutrophils % % Lymphocytes % % Monocytes % % Eosinophils % % Basophils % % Neutrophils # (1.3-7.7) k/uL Lymphocytes # (1.0-4.8) k/uL Monocytes # (0-1.0) k/uL Eosinophils # (0-0.7) k/uL Basophils # (0-0.2) k/uL Sodium (137-145) mmol/L Potassium (3.5-5.1) mmol/L Chloride (98-107) mmol/L Carbon Dioxide (22-30) mmol/L Anion Gap mmol/L BUN (7-17) mg/dL Creatinine (0.52-1.04) mg/dL Est GFR (CKD-EPI)AfAm (>60 ml/min/1.73 sqM) Est GFR (CKD-EPI)NonAf (>60 ml/min/1.73 sqM) Glucose (74-99) mg/dL Calcium (8.4-10.2) mg/dL Total Bilirubin (0.2-1.3) mg/dL AST (14-36) U/L ALT (4-34) U/L Alkaline Phosphatase (38-126) U/L Troponin I (0.000-0.034) ng/mL Total Protein (6.3-8.2) g/dL Albumin (3.5-5.0) g/dL Lipase (23-300) U/L Urine Color Colorless Urine Appearance Clear (Clear) Urine pH 6.5 (5.0-8.0) Ur Specific [place] >1.050 H (1.001-1.035) Urine Protein Trace H (Negative) Urine Glucose (UA) Negative (Negative) Urine Ketones Negative (Negative) Urine Blood Negative (Negative) Urine Nitrite Negative (Negative) Urine Bilirubin Negative (Negative) Urine Urobilinogen <2.0 (<2.0) mg/dL Ur Leukocyte Esterase Negative (Negative) Disposition Clinical Impression: Epigastric abdominal pain, Hepatomegaly Disposition: HOME SELF-CARE Condition: Stable Instructions (If sedation given, give patient instructions): Abdominal Pain (ED) Additional Instructions: Follow-up with your primary care doctor in 2-4 days and return for any new or worsening symptoms Is patient prescribed a controlled substance at d/c from ED?: No Referrals: Mikael Mai DO [Primary Care Provider] - 1-2 days Time of Disposition: 17:39
[2024-05-28 17:49] LABS: Appearance,Urine Clear (Clear); Bilirubin,Urine Negative (Negative); Blood,Urine Negative (Negative); Color,Urine Colorless; Glucose,Urine (UA) Negative (Negative); Ketones,Urine Negative (Negative); Leukocyte Esterase,Urine Negative (Negative); Nitrite,Urine Negative (Negative); PH, Urine 6.5 (5.0-8.0); Protein,Urine Trace (Negative); Urobilinogen,Urine <2.0 mg/dL (<2.0)
[2024-05-28 17:53] VITALS: BP 145/89; PULSE 85; RESP 17; TEMP 98
[2024-05-28 18:06] LABS: Specific Gravity,Urine >1.050 (1.001-1.035)
== END 2024-05-28 17:53 | disposition home or self-care (01) ==
LOC: EC 14:59
DX: R10.13 Epigastric pain (principal); R16.0 Hepatomegaly, not elsewhere classified; F17.200 Nicotine dependence, unspecified, uncomplicated
CPT/HCPCS: 36415; 74177; 80053; 81003; 83690; 84484; 85025; 93005; 99284